=== PATIENT | male | born 1960 | race Caucasian/White ===

== ENCOUNTER 2016-08-30 18:49 | Inpatient (IN) ==
--- NOTE | 2016-08-30 19:06 | Emergency Department Note ---
Disposition Clinical Impression: Suicidal ideation Disposition: Admitted As Inpatient Condition: Good Psych HPI - General Chief Complaint: ED Psychiatric Symptoms Stated Complaint: SI Time Seen by Provider: 08/30/16 18:55 Source: patient Mode of arrival: ambulatory Limitations: no limitations Nursing Notes Reviewed: Yes Vital Signs Reviewed: Yes - History of Present Illness HPI Narrative: 56-year-old male states he has a history of bipolar disorder is feeling that he is losing control. He states he's worried that he will hurt himself. Pt complaint: suicidal ideation, feels depressed If medical clearance, reason: psychiatric condition Onset (ago): Just [employer] Duration: constant History of similar episodes: Yes Improves with: none Worsens with: none Alleged intoxication: No Associated Psychiatric Symptoms: none Associated symptoms: Reports: denies other symptoms Traumatic symptoms: denies traumatic injury Treatments prior to arrival: none - Related Data Allergies Allergy/AdvReac Type Severity Reaction Status Date / Time codeine Allergy Hives Verified 08/30/16 18:54 Penicillins Allergy Hives Verified 08/30/16 18:54 All systems ED: reviewed and negative except as stated. Constitutional: Denies: fever, chills, weakness, weight change Eyes: Denies: eye pain, eye discharge, vision change ENT ED: Denies: ear pain, throat pain, dental pain, hearing loss, epistaxis, congestion, dysphagia Cardiovascular: Denies: chest pain, palpitations, dyspnea on exertion, edema, syncope Respiratory: Denies: cough, dyspnea, wheezes, hemoptysis, stridor Gastrointestinal: Denies: abdominal pain, nausea, vomiting, diarrhea, constipation, hematemesis, melena, hematochezia Genitourinary: Denies: urgency, dysuria, frequency, hematuria Musculoskeletal: Denies: back pain, neck pain, arthralgia, myalgia Integumentary: Denies: rash, abrasion, lesions Neurological: Denies: headache, weakness, numbness, paresthesias, confusion, abnormal gait, vertigo Psychiatric: Reports: depression, suicidal thoughts. Denies: anxiety, homicidal thoughts, auditory hallucinations, visual hallucinations Endocrine: Denies: fatigue Hematological/Lymphatic: Denies: easy bleeding, easy bruising Allergic/Immunologic: Denies: facial swelling, urticaria Past Medical History - Past Medical History Medical history: Reports: COPD, diabetes, hyperlipidemia, hypertension, myocardial infarction Psychiatric history: Reports: anxiety, bipolar, depression, panic disorder, schizophrenia, previous psychiatric hospitalization, other - Social History Smoking Status: Current every day smoker Alcohol use: Reports: none Drug use: Reports: none Physical Exam - General Limitations: no limitations General appearance: alert, in no apparent distress - Head Head exam: atraumatic, normocephalic, normal inspection - Eye Eye exam: Present: normal appearance, PERRL, EOMI - ENT ENT exam: normal exam, normal oropharynx, mucous membranes moist - Neck Neck exam: Present: normal inspection, full ROM, trachea midline - Chest Chest inspection: Present: normal inspection, symmetric chest wall rise - Respiratory Respiratory exam: Present: normal lung sounds bilaterally - Cardiovascular Cardiovascular exam: Present: regular rate, normal rhythm, normal heart sounds - Abdominal Exam Abdominal exam: Present: soft, Non-Tender. Absent: tenderness, distention, guarding, rebound, rigidity - Extremities Exam Extremities exam: Present: normal inspection, full ROM. Absent: tenderness, pedal edema - Expanded Lower Extremity Exam Neurovascular/Tendon exam: Absent: motor deficit, sensory deficit, tendon deficit Gait: observed and normal - Back Exam Back exam: Present: normal inspection, full ROM. Absent: tenderness - Neurological Exam Neurological exam: Present: alert, oriented X3 - Psychiatric Psychiatric exam: Present: normal affect, normal mood - Skin Skin exam: Present: warm, dry, intact, normal color Course Vital Signs Temperature 97.9 F 08/30/16 18:50 Pulse Rate 121 08/30/16 18:50 Respiratory Rate 18 08/30/16 18:50 Blood Pressure 149/82 08/30/16 18:50 O2 Sat by Pulse Oximetry 97 08/30/16 18:50 Temperature 98.2 F 08/31/16 09:00 Pulse Rate 91 08/31/16 09:00 Respiratory Rate 22 08/31/16 09:00 Blood Pressure 134/86 08/31/16 09:00 O2 Sat by Pulse Oximetry 97 08/30/16 18:50 Oxygen Delivery Oxygen Delivery Room Air Psych - Lab Data Result diagrams: 08/30/16 19:23 08/30/16 19:23 Lab Results 08/30/16 08/30/16 08/30/16 Range/Units 19:20 19:20 19:20 WBC (4.3-11.1) K/mcL RBC (4.19-5.50) M/mcL Hgb (12.9-16.9) g/dL Hct (37.5-50.1) % MCV (83.0-100.0) fL MCH (28.0-33.3) pg MCHC (31.6-35.5) g/dL RDW (11.5-14.5) % Plt Count (140-400) K/mcL MPV (9.4-12.4) fL Immature Gran % (0-4) % Seg Neutrophils % % Lymphocytes % % Monocytes % % Eosinophils % % Basophils % % Neutrophils # (1.6-8.9) K/mcL Lymphocytes # (0.6-4.6) K/mcL Monocytes # (0.0-1.3) K/mcL Eosinophils # (0.0-0.6) K/mcL Basophils # (0.0-0.2) K/mcL Sodium (136-145) mEq/L Potassium (3.5-4.5) mEq/L Chloride (98-109) mEq/L Carbon Dioxide (19-29) mEq/L BUN (8-26) mg/dL Creatinine (0.72-1.25) mg/dL Est GFR ( Amer) (> 60) Est GFR (Non-Af Amer) (> 60) BUN/Creatinine Ratio (6-26) Glucose (70-99) mg/dL POC Glucose 210 H (58-89) Calculated Osmolality (280-300) Calcium (8.6-10.8) mg/dL Urine Color Yellow (Yellow) Urine Clarity Cloudy A (Clear) Urine pH 6.5 (5.0-8.0) pH Units Ur Specific [place] 1.022 (1.010-1.025) Urine Protein 30 H (Neg-Trace) mg/dL Urine Glucose (UA) 100 H (Normal) mg/dL Urine Ketones Negative (Negative) mg/dL Urine Blood Negative (Negative) Urine Nitrite Negative (Negative) Urine Bilirubin Small H (Negative) Urine Urobilinogen Normal (Normal) mg/dL Ur Leukocyte Esterase Small H (Negative) Urine Microscopic RBC 0-3 (0-3) per hpf Urine Microscopic WBC 5-15 H (0-3) per hpf Ur Squamous Epith Cells Many H (None-Few) per lpf Urine Bacteria Few (None-Few) per hpf Hyaline Casts Few (None-Few) per lpf Urine Mucus Moderate H (Few) Urine Yeast Test Not Performed Salicylates (15-30) mg/dL Urine Opiates Screen Negative (Lxjjjq=284) ng/mL Acetaminophen (10-30) mcg/mL Ur Barbiturates Screen Negative (Bkxzqw=502) ng/mL Ur Phencyclidine Scrn Negative (Cutoff=25) ng/mL Ur Amphetamines Screen Negative (Qdwobu=9341) ng/mL U Benzodiazepines Scrn Negative (Wtmxus=775) ng/mL Urine Cocaine Screen Negative (Cutoff= 300) ng/mL U Marijuana (THC) Screen Negative (Cutoff = 50) ng/mL Ethyl Alcohol (0-10) mg/dL 08/30/16 08/30/16 Range/Units 19:23 19:23 WBC 13.1 H (4.3-11.1) K/mcL RBC 5.00 (4.19-5.50) M/mcL Hgb 14.5 (12.9-16.9) g/dL Hct 41.4 (37.5-50.1) % MCV 82.8 L (83.0-100.0) fL MCH 29.0 (28.0-33.3) pg MCHC 35.0 (31.6-35.5) g/dL RDW 12.4 (11.5-14.5) % Plt Count 312 (140-400) K/mcL MPV 8.9 L (9.4-12.4) fL Immature Gran % 0.5 (0-4) % Seg Neutrophils % 64.0 % Lymphocytes % 19.9 % Monocytes % 10.1 % Eosinophils % 4.7 % Basophils % 0.8 % Neutrophils # 8.4 (1.6-8.9) K/mcL Lymphocytes # 2.6 (0.6-4.6) K/mcL Monocytes # 1.3 (0.0-1.3) K/mcL Eosinophils # 0.6 (0.0-0.6) K/mcL Basophils # 0.1 (0.0-0.2) K/mcL Sodium 136 (136-145) mEq/L Potassium 4.3 (3.5-4.5) mEq/L Chloride 104 (98-109) mEq/L Carbon Dioxide 23 (19-29) mEq/L BUN 15 (8-26) mg/dL Creatinine 0.84 (0.72-1.25) mg/dL Est GFR ( Amer) > 60 (> 60) Est GFR (Non-Af Amer) > 60 (> 60) BUN/Creatinine Ratio 18 (6-26) Glucose 201 H (70-99) mg/dL POC Glucose (58-89) Calculated Osmolality 289 (280-300) Calcium 10.1 (8.6-10.8) mg/dL Urine Color (Yellow) Urine Clarity (Clear) Urine pH (5.0-8.0) pH Units Ur Specific [place] (1.010-1.025) Urine Protein (Neg-Trace) mg/dL Urine Glucose (UA) (Normal) mg/dL Urine Ketones (Negative) mg/dL Urine Blood (Negative) Urine Nitrite (Negative) Urine Bilirubin (Negative) Urine Urobilinogen (Normal) mg/dL Ur Leukocyte Esterase (Negative) Urine Microscopic RBC (0-3) per hpf Urine Microscopic WBC (0-3) per hpf Ur Squamous Epith Cells (None-Few) per lpf Urine Bacteria (None-Few) per hpf Hyaline Casts (None-Few) per lpf Urine Mucus (Few) Urine Yeast Salicylates < 5.0 L (15-30) mg/dL Urine Opiates Screen (Ivvnot=151) ng/mL Acetaminophen < 1.0 L (10-30) mcg/mL Ur Barbiturates Screen (Ebhyna=567) ng/mL Ur Phencyclidine Scrn (Cutoff=25) ng/mL Ur Amphetamines Screen (Cgsaiv=9865) ng/mL U Benzodiazepines Scrn (Dhnlem=150) ng/mL Urine Cocaine Screen (Cutoff= 300) ng/mL U Marijuana (THC) Screen (Cutoff = 50) ng/mL Ethyl Alcohol < 10 (0-10) mg/dL Psychiatric Medical Clearance - Medical Clearance Checklist Medical History: No Social History Section defined Current Vitals: Last Vital Signs Temp 98.2 F 08/31/16 09:00 Pulse 91 08/31/16 09:00 Resp 22 08/31/16 09:00 BP 134/86 08/31/16 09:00 Pulse Ox 97 08/30/16 18:50 Psychiatric Lab Panel: Drug Levels and Toxicity 08/30/16 08/30/16 19:20 19:23 Urine Opiates Screen Negative Acetaminophen < 1.0 L Ur Barbiturates Screen Negative Ur Phencyclidine Scrn Negative Ur Amphetamines Screen Negative U Benzodiazepines Scrn Negative Urine Cocaine Screen Negative U Marijuana (THC) Screen Negative Ethyl Alcohol < 10 Abnormal Labs: Abnormal lab results WBC 13.1 K/mcL (4.3-11.1) H 08/30/16 19:23 MCV 82.8 fL (83.0-100.0) L 08/30/16 19:23 MPV 8.9 fL (9.4-12.4) L 08/30/16 19:23 Glucose 201 mg/dL (70-99) H 08/30/16 19:23 POC Glucose 170 (58-89) H 08/31/16 07:38 Urine Clarity Cloudy (Clear) A 08/30/16 19:20 Urine Protein 30 mg/dL (Neg-Trace) H 08/30/16 19:20 Urine Glucose (UA) 100 mg/dL (Normal) H 08/30/16 19:20 Urine Bilirubin Small (Negative) H 08/30/16 19:20 Ur Leukocyte Esterase Small (Negative) H 08/30/16 19:20 Urine Microscopic WBC 5-15 per hpf (0-3) H 08/30/16 19:20 Ur Squamous Epith Cells Many per lpf (None-Few) H 08/30/16 19:20 Urine Mucus Moderate (Few) H 08/30/16 19:20 Salicylates < 5.0 mg/dL (15-30) L 08/30/16 19:23 Acetaminophen < 1.0 mcg/mL (10-30) L 08/30/16 19:23 Statement of Medical Clearance: I have evaluated the patient, reviewed diagnostic information, and certify that the patient's medical condition is sufficiently stable that transfer to the psychiatric unit does not pose a significant risk of deterioration. S.B.Faisal - Héctor Situation: Demographics Background: Presenting Complaint (Depression and bipolar disorder) Assessment: Vital Signs Recommendation: Recommendation based on pending studies, treatments, or consults S.B.ADebo Report Given to: Dr. Dyana Anaya Repor Time: 23:00
[2016-08-30 19:28] LABS: Basophils # 0.1 K/mcL (0.0-0.2); Basophils % 0.8 %; Eosinophils # 0.6 K/mcL (0.0-0.6); Eosinophils % 4.7 %; Hematocrit 41.4 % (37.5-50.1); Hemoglobin 14.5 g/dL (12.9-16.9); Immature Granulocytes % 0.5 % (0-4); Lymphocytes # 2.6 K/mcL (0.6-4.6); Lymphocytes % 19.9 %; Mean Corpuscular Volume 82.8 fL (83.0-100.0); Mean Platelet Volume 8.9 fL (9.4-12.4); Monocytes # 1.3 K/mcL (0.0-1.3); Monocytes % 10.1 %; Neutrophils # 8.4 K/mcL (1.6-8.9); Platelet Count 312 K/mcL (140-400); Red Cell Distribution Width 12.4 % (11.5-14.5)
[2016-08-30 19:30] LABS: Bilirubin,Urine Small (Negative); Blood,Urine Negative (Negative); Clarity,Urine Cloudy (Clear); Color,Urine Yellow (Yellow); Glucose,Urine (UA) 100 mg/dL (Normal); Ketones,Urine Negative (Negative); Leukocyte Esterase,Urine Small (Negative); Nitrite,Urine Negative (Negative); PH,Urine 6.5 pH Units (5.0-8.0); Protein,Urine 30 mg/dL (Neg-Trace); Specific Gravity,Urine 1.022 (1.010-1.025); Urobilinogen,Urine Normal (Normal)
[2016-08-30 19:36] LABS: Hyaline Casts,Urine Few per lpf (None-Few); RBC,Urine 0-3 per hpf (0-3); Squamous Epithelial Cell,Urine Many per lpf (None-Few)
[2016-08-30 19:38] LABS: Amphetamine Screen,Urine Negative ng/mL (Cutoff=1000); Barbiturate Screen,Urine Negative ng/mL (Cutoff=200); Benzodiazepines Screen,Urine Negative ng/mL (Cutoff=200); Cannabinoid Screen,Urine Negative ng/mL (Cutoff = 50); Cocaine Screen,Urine Negative ng/mL (Cutoff= 300); Opiate Screen,Urine Negative ng/mL (Cutoff=300); Phencyclidine Screen,Urine Negative ng/mL (Cutoff=25)
[2016-08-30 19:42] LABS: Acetaminophen < 1.0 mcg/mL (10-30); BUN/Creatinine Ratio 18 (6-26); Blood Urea Nitrogen 15 mg/dL (8-26); Calcium 10.1 mg/dL (8.6-10.8); Carbon Dioxide 23 mEq/L (19-29); Chloride 104 mEq/L (98-109); Ethanol < 10 mg/dL (0-10); Glucose 201 mg/dL (70-99); Osmolality,Calculated 289 (280-300); Potassium 4.3 mEq/L (3.5-4.5); Salicylate < 5.0 mg/dL (15-30); Sodium 136 mEq/L (136-145); eGFR For African Americans > 60 (> 60); eGFR For Non-African Americans > 60 (> 60)
[2016-08-30 19:47] LABS: Bacteria,Urine Few per hpf (None-Few); Mucus,Urine Moderate (Few)
--- NOTE | 2016-08-30 22:20 | Emergency Department Note ---
Disposition Clinical Impression: Suicidal ideation Disposition: Admitted As Inpatient Condition: Good Referrals: NO,PCP [Primary Care Provider] - Forms: ED Satisfaction Letter Time of Disposition: 23:35 General Adult HPI - General Chief complaint: ED Psychiatric Symptoms Stated complaint: SI Time Seen by Provider: 08/30/16 18:55 Source: patient Mode of arrival: ambulatory Limitations: no limitations - History of Present Illness Pain Scale: 2 - Related Data Allergies Allergy/AdvReac Type Severity Reaction Status Date / Time codeine Allergy Hives Verified 08/30/16 18:54 Penicillins Allergy Hives Verified 08/30/16 18:54 Constitutional: Denies: fever, chills, weakness, weight change Eyes: Denies: eye pain, eye discharge, vision change ENT ED: Denies: ear pain, throat pain, dental pain, hearing loss, epistaxis, congestion, dysphagia Cardiovascular: Denies: chest pain, palpitations, dyspnea on exertion, edema, syncope Respiratory: Denies: cough, dyspnea, wheezes, hemoptysis, stridor Gastrointestinal: Denies: abdominal pain, nausea, vomiting, diarrhea, constipation, hematemesis, melena, hematochezia Genitourinary: Denies: urgency, dysuria, frequency, hematuria Musculoskeletal: Denies: back pain, neck pain, arthralgia, myalgia Integumentary: Denies: rash, abrasion, lesions Neurological: Denies: headache, weakness, numbness, paresthesias, confusion, abnormal gait, vertigo Psychiatric: Reports: depression, suicidal thoughts. Denies: anxiety, homicidal thoughts, auditory hallucinations, visual hallucinations Endocrine: Denies: fatigue Hematological/Lymphatic: Denies: easy bleeding, easy bruising Allergic/Immunologic: Denies: facial swelling, urticaria Past Medical History - Past Medical History Medical history: Reports: COPD, diabetes, hyperlipidemia, hypertension, myocardial infarction Psychiatric history: Reports: anxiety, bipolar, depression, panic disorder, schizophrenia, previous psychiatric hospitalization, other - Social History Smoking Status: Current every day smoker Alcohol use: Reports: none Drug use: Reports: none Physical Exam - General Limitations: no limitations General appearance: alert, in no apparent distress Course - Reevaluation(s) Reevaluation #1: 56-year-old male history of bipolar disorder presents with suicidal ideations. No discrete plan. Medically cleared. Received the patient in sign out from the departing attending Dr. Villalpando. Please see copy of his note for details of the previous ED workup encounter. Mental health to evaluate the patient and arrange disposition. Disposition pending. Patient stable Time: 23:00 Reevaluation #2: Mental health had evaluated the patient. Discussed the case with the psychiatric attending Dr. Porter. Patient accepted for admission. Admission orders placed. REQUESTED to complete and signed a pink slip which has been accomplished. Patient admitted in stable condition. Time: 23:35 Vital Signs Temperature 97.9 F 08/30/16 18:50 Pulse Rate 121 08/30/16 18:50 Respiratory Rate 18 08/30/16 18:50 Blood Pressure 149/82 08/30/16 18:50 O2 Sat by Pulse Oximetry 97 08/30/16 18:50 Temperature 97.9 F 08/30/16 18:50 Pulse Rate 121 08/30/16 18:50 Respiratory Rate 18 08/30/16 18:50 Blood Pressure 149/82 08/30/16 18:50 O2 Sat by Pulse Oximetry 97 08/30/16 18:50 Oxygen Delivery Oxygen Delivery Room Air Medical Decision Making - Lab Data Result diagrams: 08/30/16 19:23 08/30/16 19:23 Lab Results 08/30/16 08/30/16 08/30/16 Range/Units 19:20 19:20 19:23 WBC 13.1 H (4.3-11.1) K/mcL RBC 5.00 (4.19-5.50) M/mcL Hgb 14.5 (12.9-16.9) g/dL Hct 41.4 (37.5-50.1) % MCV 82.8 L (83.0-100.0) fL MCH 29.0 (28.0-33.3) pg MCHC 35.0 (31.6-35.5) g/dL RDW 12.4 (11.5-14.5) % Plt Count 312 (140-400) K/mcL MPV 8.9 L (9.4-12.4) fL Immature Gran % 0.5 (0-4) % Seg Neutrophils % 64.0 % Lymphocytes % 19.9 % Monocytes % 10.1 % Eosinophils % 4.7 % Basophils % 0.8 % Neutrophils # 8.4 (1.6-8.9) K/mcL Lymphocytes # 2.6 (0.6-4.6) K/mcL Monocytes # 1.3 (0.0-1.3) K/mcL Eosinophils # 0.6 (0.0-0.6) K/mcL Basophils # 0.1 (0.0-0.2) K/mcL Sodium (136-145) mEq/L Potassium (3.5-4.5) mEq/L Chloride (98-109) mEq/L Carbon Dioxide (19-29) mEq/L BUN (8-26) mg/dL Creatinine (0.72-1.25) mg/dL Est GFR ( Amer) (> 60) Est GFR (Non-Af Amer) (> 60) BUN/Creatinine Ratio (6-26) Glucose (70-99) mg/dL Calculated Osmolality (280-300) Calcium (8.6-10.8) mg/dL Urine Color Yellow (Yellow) Urine Clarity Cloudy A (Clear) Urine pH 6.5 (5.0-8.0) pH Units Ur Specific [place] 1.022 (1.010-1.025) Urine Protein 30 H (Neg-Trace) mg/dL Urine Glucose (UA) 100 H (Normal) mg/dL Urine Ketones Negative (Negative) mg/dL Urine Blood Negative (Negative) Urine Nitrite Negative (Negative) Urine Bilirubin Small H (Negative) Urine Urobilinogen Normal (Normal) mg/dL Ur Leukocyte Esterase Small H (Negative) Urine Microscopic RBC 0-3 (0-3) per hpf Urine Microscopic WBC 5-15 H (0-3) per hpf Ur Squamous Epith Cells Many H (None-Few) per lpf Urine Bacteria Few (None-Few) per hpf Hyaline Casts Few (None-Few) per lpf Urine Mucus Moderate H (Few) Urine Yeast Test Not Performed Salicylates (15-30) mg/dL Urine Opiates Screen Negative (Cbxjgr=760) ng/mL Acetaminophen (10-30) mcg/mL Ur Barbiturates Screen Negative (Qcvmoh=351) ng/mL Ur Phencyclidine Scrn Negative (Cutoff=25) ng/mL Ur Amphetamines Screen Negative (Jrgtvi=3756) ng/mL U Benzodiazepines Scrn Negative (Cwlkht=063) ng/mL Urine Cocaine Screen Negative (Cutoff= 300) ng/mL U Marijuana (THC) Screen Negative (Cutoff = 50) ng/mL Ethyl Alcohol (0-10) mg/dL 08/30/16 Range/Units 19:23 WBC (4.3-11.1) K/mcL RBC (4.19-5.50) M/mcL Hgb (12.9-16.9) g/dL Hct (37.5-50.1) % MCV (83.0-100.0) fL MCH (28.0-33.3) pg MCHC (31.6-35.5) g/dL RDW (11.5-14.5) % Plt Count (140-400) K/mcL MPV (9.4-12.4) fL Immature Gran % (0-4) % Seg Neutrophils % % Lymphocytes % % Monocytes % % Eosinophils % % Basophils % % Neutrophils # (1.6-8.9) K/mcL Lymphocytes # (0.6-4.6) K/mcL Monocytes # (0.0-1.3) K/mcL Eosinophils # (0.0-0.6) K/mcL Basophils # (0.0-0.2) K/mcL Sodium 136 (136-145) mEq/L Potassium 4.3 (3.5-4.5) mEq/L Chloride 104 (98-109) mEq/L Carbon Dioxide 23 (19-29) mEq/L BUN 15 (8-26) mg/dL Creatinine 0.84 (0.72-1.25) mg/dL Est GFR ( Amer) > 60 (> 60) Est GFR (Non-Af Amer) > 60 (> 60) BUN/Creatinine Ratio 18 (6-26) Glucose 201 H (70-99) mg/dL Calculated Osmolality 289 (280-300) Calcium 10.1 (8.6-10.8) mg/dL Urine Color (Yellow) Urine Clarity (Clear) Urine pH (5.0-8.0) pH Units Ur Specific [place] (1.010-1.025) Urine Protein (Neg-Trace) mg/dL Urine Glucose (UA) (Normal) mg/dL Urine Ketones (Negative) mg/dL Urine Blood (Negative) Urine Nitrite (Negative) Urine Bilirubin (Negative) Urine Urobilinogen (Normal) mg/dL Ur Leukocyte Esterase (Negative) Urine Microscopic RBC (0-3) per hpf Urine Microscopic WBC (0-3) per hpf Ur Squamous Epith Cells (None-Few) per lpf Urine Bacteria (None-Few) per hpf Hyaline Casts (None-Few) per lpf Urine Mucus (Few) Urine Yeast Salicylates < 5.0 L (15-30) mg/dL Urine Opiates Screen (Shviyr=836) ng/mL Acetaminophen < 1.0 L (10-30) mcg/mL Ur Barbiturates Screen (Shqhcp=423) ng/mL Ur Phencyclidine Scrn (Cutoff=25) ng/mL Ur Amphetamines Screen (Xurdca=0314) ng/mL U Benzodiazepines Scrn (Uovpnv=058) ng/mL Urine Cocaine Screen (Cutoff= 300) ng/mL U Marijuana (THC) Screen (Cutoff = 50) ng/mL Ethyl Alcohol < 10 (0-10) mg/dL
[2016-08-30] MEDS ORDERED: traZODone 50 MG TABLET PO PRN (23:37)
[2016-08-30] MEDS ORDERED: hydrOXYzine pamoate 25 MG CAPSULE PO PRN (23:37)
[2016-08-30] MEDS ORDERED: MOM Conc 10 ML UD.LIQ PO PRN (23:37)
[2016-08-30] MEDS ORDERED: *HR* LORazepam 1 MG TABLET PO PRN (23:37)
[2016-08-30] MEDS ORDERED: Mag Hydrox/Al Hydrox/Simeth 30 ML UDC PO PRN (23:37)
[2016-08-30] MEDS ORDERED: Acetaminophen 325 MG TABLET PO PRN (23:37)
[2016-08-30] MEDS ORDERED: Haloperidol Lactate 5 MG/ML VIAL IM PRN (23:37)
[2016-08-30] MEDS ORDERED: *HR* LORazepam 2 MG/ML VIAL IM PRN (23:37)
[2016-08-31] MEDS: Nicotine 21 MG PATCH.TD24 TD SCH (10:20)
--- NOTE | 2016-08-31 12:41 | Psychiatry History & Physical ---
Date of Encounter: 08/31/16 Time of Encounter: 12:15 History of Present Illness Patient Stated Chief Complaint: "I feel depressed." Medicare Admission Attestation: For traditional Medicare patients the provided hospital inpatient services are reasonable and necessary and in the case of services not specified as inpatient -only under 42 CFR 419.22 (n), that they are appropriately provided as inpatient services in accordance 42 CFR 412.3. For Critical Access Hospital the patient may reasonably be expected to be discharged or transferred to a hospital within 96 hours after admission to the Critical Access Hospital. Admitted From: Emergency Dept Plans for Post Hospital Care: Home History of Present Illness: Mr. Coy is a 56 year old male with a long-standing history of depression and anxiety as well as a remote history of alcohol and drug abuse. He presented to the hospital with increasing suicidal ideation and depressed mood area and patient states his mood has been getting progressively worse over the past few months. He states [place] but he does not feel that he connects with his neighbors. "I go off all my own."patient states that in the past he has done well with lithium but other providers have been hesitant to prescribe it. He does have long-standing history of hypothyroidism and diabetes as well as multiple other medical issues. Patient reports he is going to try anything as long as it is helpful for him. He has been taking Risperdal and Zoloft in low doses as well as trazodone for sleep. Patient does report he has difficulty both falling asleep and staying asleep. "Sometimes my mind just races." He reports continued suicidal ideation without plan today. "I just have any hope for the future right now." He denies grandiosity, decreased need for sleep, impulsivity. He denies obsessions, delusions, paranoia. Patient voiced a concern that he would like to stay away from habit-forming substances because he has been sober for 20 years. He feels like he has no social support outside of the hospital. Past Med Surg Social Fam HX - Past Medical History Medical history: COPD, diabetes, hyperlipidemia, hypertension, myocardial infarction - Past Psychiatric History Psychiatric history: Reports: depression, prior suicide attempt, previous psychiatric hospitalization Past psychiatric history details: Patient reports multiple psychiatric admissions in the past. Last admission was multiple years ago. He has overdosed several times in the past. Patient states that he goes home he may try to overdose again. Family psychiatric history: No Family History of Suicide: None - Past Surgical History Surgical History: orthopedic, other - Social History Smoking Status: Current every day smoker Smokeless Tobacco Status: No Alcohol use: none Drug use: none Current living situation: Home - Independent - Family History Mother Family Member Ethnicity: Non- Living Status: Age at : 82 Cause of : "Heart disease" Hx Family Cardiac Disorders: Yes Medications & Allergies Albuterol Sulfate [Ventolin Hfa] 2 puff IH Q4-6H PRN 08/31/16 [History] Aspirin Enteric Coated [Aspirin EC] 81 mg PO DAILY 08/31/16 [History] Atorvastatin [Lipitor] 10 mg PO HS 08/31/16 [History] Levothyroxine [Synthroid] 50 mcg PO 0630 08/31/16 [History] Metformin HCl [Glucophage] 1,000 mg PO BIDWM 08/31/16 [History] Sertraline [Zoloft] 25 mg PO DAILY 08/31/16 [History] risperiDONE [Risperdal] 0.25 mg PO BID 08/31/16 [History] traZODone [TraZODone] 50 mg PO HS 08/31/16 [History] Allergies codeine Allergy (Verified 08/30/16 18:54) Hives Penicillins Allergy (Verified 08/30/16 18:54) Hives Review of Systems Constitutional: Denies: fever, chills, weakness, weight change Eyes: Denies: eye pain, vision change Ears, Nose, Throat: Denies: ear pain, throat pain, dental pain, hearing loss, congestion Cardiovascular: Denies: chest pain, palpitations, dyspnea on exertion Respiratory: Denies: cough, dyspnea, wheezes Gastrointestinal: Denies: abdominal pain, nausea, vomiting, diarrhea, constipation Genitourinary male: Denies: urgency, dysuria, frequency, genital lesions Genitourinary female: Denies: urgency, dysuria, frequency, abnormal menses, dyspareunia Musculoskeletal: Reports: joint pain Integumentary: Denies: rash, lesions, pruritus Neurological: Reports: paresthesias Psychiatric: Reports: depression, suicidal ideation, anhedonia, hopelessness Endocrine: Denies: fatigue, heat or cold intolerance Hematologic/Lymphatic: Denies: easy bruising, lymphadenopathy Allergic/Immunologic: Denies: urticaria, itchy eyes Mental Status Exam Patient orientation: Yes Person, Yes Time, Yes Place Level of alertness: Alert Patient appearance: Disheveled Behavior: calm, cooperative Psychomotor activity: Normal Eye contact: Fleeting Contact Mood description: Depressed, Anxious Affect description: congruent with mood, dysphoric Speech pattern: Normal rate, Normal rhythm, Normal tone Speech volume: Normal Thought process: Intact Thought content: Yes Suicidal ideation, No Homicidal ideation Perceptual disturbances: No Auditory hallucinations, No Visual hallucinations Attention span: Capable of Focused Attention Memory description: Grossly Intact Patient reliability: Reliable Historian Intelligence estimate: Average Judgment: Limited Insight: Minimal Exam - HEENT Head exam IM: Present: atraumatic Eye exam IM: Present: EOMI - Neurological Neurological exam IM: Present: CN II-XII intact - Skin Skin exam IM: Present: dry, intact Results - Vital Signs Vital signs: Temp Pulse Resp BP Pulse Ox 98.2 F 91 22 134/86 97 08/31/16 09:00 08/31/16 09:00 08/31/16 09:00 08/31/16 09:00 08/30/16 18:50 - Labs Labs: Laboratory Last Values WBC 13.1 K/mcL (4.3-11.1) H 08/30/16 19:23 RBC 5.00 M/mcL (4.19-5.50) 08/30/16 19:23 Hgb 14.5 g/dL (12.9-16.9) 08/30/16 19:23 Hct 41.4 % (37.5-50.1) 08/30/16 19:23 MCV 82.8 fL (83.0-100.0) L 08/30/16 19:23 MCH 29.0 pg (28.0-33.3) 08/30/16 19:23 MCHC 35.0 g/dL (31.6-35.5) 08/30/16 19:23 RDW 12.4 % (11.5-14.5) 08/30/16 19:23 Plt Count 312 K/mcL (140-400) 08/30/16 19:23 MPV 8.9 fL (9.4-12.4) L 08/30/16 19:23 Immature Gran % 0.5 % (0-4) 08/30/16 19:23 Seg Neutrophils % 64.0 % 08/30/16 19:23 Lymphocytes % 19.9 % 08/30/16 19:23 Monocytes % 10.1 % 08/30/16 19:23 Eosinophils % 4.7 % 08/30/16 19:23 Basophils % 0.8 % 08/30/16 19:23 Neutrophils # 8.4 K/mcL (1.6-8.9) 08/30/16 19:23 Lymphocytes # 2.6 K/mcL (0.6-4.6) 08/30/16 19:23 Monocytes # 1.3 K/mcL (0.0-1.3) 08/30/16 19:23 Eosinophils # 0.6 K/mcL (0.0-0.6) 08/30/16 19:23 Basophils # 0.1 K/mcL (0.0-0.2) 08/30/16 19:23 Sodium 136 mEq/L (136-145) 08/30/16 19:23 Potassium 4.3 mEq/L (3.5-4.5) 08/30/16 19:23 Chloride 104 mEq/L (98-109) 08/30/16 19:23 Carbon Dioxide 23 mEq/L (19-29) 08/30/16 19:23 BUN 15 mg/dL (8-26) 08/30/16 19:23 Creatinine 0.84 mg/dL (0.72-1.25) 08/30/16 19:23 Est GFR ( Amer) > 60 (> 60) 08/30/16 19:23 Est GFR (Non-Af Amer) > 60 (> 60) 08/30/16 19:23 BUN/Creatinine Ratio 18 (6-26) 08/30/16 19:23 Glucose 201 mg/dL (70-99) H 08/30/16 19:23 POC Glucose 170 (58-89) H 08/31/16 07:38 Calculated Osmolality 289 (280-300) 08/30/16 19:23 Calcium 10.1 mg/dL (8.6-10.8) 08/30/16 19:23 Urine Color Yellow (Yellow) 08/30/16 19:20 Urine Clarity Cloudy (Clear) A 08/30/16 19:20 Urine pH 6.5 pH Units (5.0-8.0) 08/30/16 19:20 Ur Specific [place] 1.022 (1.010-1.025) 08/30/16 19:20 Urine Protein 30 mg/dL (Neg-Trace) H 08/30/16 19:20 Urine Glucose (UA) 100 mg/dL (Normal) H 08/30/16 19:20 Urine Ketones Negative mg/dL (Negative) 08/30/16 19:20 Urine Blood Negative (Negative) 08/30/16 19:20 Urine Nitrite Negative (Negative) 08/30/16 19:20 Urine Bilirubin Small (Negative) H 08/30/16 19:20 Urine Urobilinogen Normal mg/dL (Normal) 08/30/16 19:20 Ur Leukocyte Esterase Small (Negative) H 08/30/16 19:20 Urine Microscopic RBC 0-3 per hpf (0-3) 08/30/16 19:20 Urine Microscopic WBC 5-15 per hpf (0-3) H 08/30/16 19:20 Ur Squamous Epith Cells Many per lpf (None-Few) H 08/30/16 19:20 Urine Bacteria Few per hpf (None-Few) 08/30/16 19:20 Hyaline Casts Few per lpf (None-Few) 08/30/16 19:20 Urine Mucus Moderate (Few) H 08/30/16 19:20 Urine Yeast Test Not Performed 08/30/16 19:20 Salicylates < 5.0 mg/dL (15-30) L 08/30/16 19:23 Urine Opiates Screen Negative ng/mL (Vjlltu=460) 08/30/16 19:20 Acetaminophen < 1.0 mcg/mL (10-30) L 08/30/16 19:23 Ur Barbiturates Screen Negative ng/mL (Sgnpgs=966) 08/30/16 19:20 Ur Phencyclidine Scrn Negative ng/mL (Cutoff=25) 08/30/16 19:20 Ur Amphetamines Screen Negative ng/mL (Vuqnqr=5480) 08/30/16 19:20 U Benzodiazepines Scrn Negative ng/mL (Ndmlvw=866) 08/30/16 19:20 Urine Cocaine Screen Negative ng/mL (Cutoff= 300) 08/30/16 19:20 U Marijuana (THC) Screen Negative ng/mL (Cutoff = 50) 08/30/16 19:20 Ethyl Alcohol < 10 mg/dL (0-10) 08/30/16 19:23 Assessment and Plan (1) Major depressive disorder, recurrent severe without psychotic features Current visit: Yes Status: Acute Plan: Admit inpatient for safety and stabilization, Close observation, Suicide Precautions per unit protocol, Encourage participation in unit milieu, Group Therapy, Monitor sleep, Monitor appetite Additional Plan: Admitted to 1 a for psychiatric stabilization. Encourage group attendance. We will increase Zoloft and Risperdal for mood stabilization. Patient denies side effects of these meds but states they are no longer helping at current dosages. Increase trazodone for sleep. Monitor for side effects. Risks, benefits, side effects, alternatives discussed w/pt: Yes Patient agreeable to treatment: Yes Plans for Post Hospital Care: Home Estimated Length of Stay (Days): 3 (2) Anxiety Current visit: Yes Status: Acute Plan: Admit inpatient for safety and stabilization, Close observation, Suicide Precautions per unit protocol, Encourage participation in unit milieu, Group Therapy, Monitor sleep, Monitor appetite Additional Plan: Encourage positive coping strategies. Consider BuSpar or hydroxyzine for anxiety if needed. Risks, benefits, side effects, alternatives discussed w/pt: Yes Patient agreeable to treatment: Yes
[2016-08-31] MEDS: *HR* Metformin 500 MG TABLET PO SCH (16:31)
[2016-08-31] MEDS: risperiDONE 0.25 MG TABLET PO SCH (20:12)
[2016-08-31] MEDS: traZODone 50 MG TABLET PO PRN (20:14)
[2016-08-31] MEDS ORDERED: traZODone 50 MG TABLET PO SCH (21:00)
[2016-08-31] MEDS ORDERED: risperiDONE 0.25 MG TABLET PO SCH (21:00)
[2016-09-01] MEDS: Nicotine 21 MG PATCH.TD24 TD SCH (09:05)
[2016-09-01] MEDS: Aspirin Enteric Coated 81 MG Tablet PO SCH (09:06)
[2016-09-01] MEDS: risperiDONE 0.25 MG TABLET PO SCH ×2 (09:06→21:07)
[2016-09-01] MEDS: *HR* Metformin 500 MG TABLET PO SCH ×2 (09:06→17:11)
--- NOTE | 2016-09-01 10:35 | Psychiatry Progress Note ---
Date of Encounter: 09/01/16 Time of Encounter: 09:20 Subjective Interval history: Gene is seen today for follow-up. He reports continued depression and vague suicidal ideations without plan. Patient denies issues with meds except that he feels slightly more fatigued since the increase of Zoloft and Risperdal. Patient is prepared to get used to the adjustment and states that when he initially started the Risperdal had some fatigue but that this decreased over time. He reports that he is very lonely at home and has trouble connecting with others socially. This is a big concern for him on discharge. I encouraged patient to attend groups. Review of Systems Constitutional: Denies: fever, chills, weakness, weight change Eyes: Denies: eye pain, vision change Ears, Nose, Throat: Denies: ear pain, throat pain, dental pain, hearing loss, congestion Cardiovascular: Denies: chest pain, palpitations, dyspnea on exertion Respiratory: Denies: cough, dyspnea, wheezes Gastrointestinal: Denies: abdominal pain, nausea, vomiting, diarrhea, constipation Musculoskeletal: Reports: back pain, joint pain Neurological: Denies: headache, weakness, numbness, memory loss Psychiatric: Reports: depression, suicidal ideation, anhedonia, difficulty concentrating, hopelessness Objective: Exam Patient orientation: Yes Person, Yes Time, Yes Place Level of alertness: Alert Patient appearance: Unkempt Behavior: calm, cooperative Psychomotor activity: Normal Eye contact: Minimal Contact Mood description: Depressed Affect description: congruent with mood, dysphoric Speech pattern: Normal rate, Normal rhythm, Normal tone Speech volume: Normal Thought process: Intact, Aubrey Thought content: Yes Suicidal ideation Perceptual disturbances: No Auditory hallucinations, No Visual hallucinations Judgment: Limited Insight: Minimal Results - Vital Signs Vital Signs: Temp Pulse Resp BP Pulse Ox 97.6 F 114 16 90/61 97 09/01/16 08:16 09/01/16 08:16 09/01/16 08:16 09/01/16 08:16 08/30/16 18:50 - Labs Labs: Laboratory Results - last 24 hr 08/31/16 08/31/16 09/01/16 16:27 21:08 09:04 POC Glucose 193 H 178 H 308 H Assessment and Plan (1) Major depressive disorder, recurrent severe without psychotic features Current visit: Yes Status: Acute Plan: Continue hospitalization, Close observation, Suicide Precautions per unit protocol, Encourage participation in unit milieu, Group Therapy, Monitor sleep, Monitor appetite Additional Plan: We will monitor patient and make no further medication changes today as patient is having some sedation. We will consider cutting the daytime dose of Risperdal back to lower dosage and given increased dose at bedtime if patient continues to have fatigue. He is willing to attend groups. We will work on appropriate DC planning for when patient is stable. Risks, benefits, side effects, alternatives discussed w/pt: Yes Patient agreeable to treatment: Yes (2) Anxiety Current visit: Yes Status: Acute Plan: Continue hospitalization, Close observation, Suicide Precautions per unit protocol, Encourage participation in unit milieu, Group Therapy, Monitor sleep, Monitor appetite Additional Plan: Encourage positive coping strategies. Risks, benefits, side effects, alternatives discussed w/pt: Yes Patient agreeable to treatment: Yes Consult Discharge Plan - Plan Referrals: NO,PCP [Primary Care Provider] -
[2016-09-01] MEDS: traZODone 50 MG TABLET PO PRN (21:07)
[2016-09-02] MEDS: risperiDONE 0.25 MG TABLET PO SCH ×2 (08:05→20:55)
[2016-09-02] MEDS: *HR* Metformin 500 MG TABLET PO SCH ×2 (08:05→17:41)
[2016-09-02] MEDS: Nicotine 21 MG PATCH.TD24 TD SCH (08:05)
[2016-09-02] MEDS: Aspirin Enteric Coated 81 MG Tablet PO SCH (08:06)
--- NOTE | 2016-09-02 10:38 | Psychiatry Progress Note ---
Date of Encounter: 09/02/16 Time of Encounter: 10:15 Subjective Interval history: Gene is seen today for follow-up. He reports he is tolerating his medication changes better today and states his fatigue is improving. He has been able to get up and shower and is sitting on the day room. He denies suicidal ideations. He states he is more hopeful about his future despite his chronic pain issues. He knows the medications will take time to fully work but he is hopeful that the med changes will continue to improve his mood. He reports he is sleeping well he has had a few nightmares but he states that this happens from time to time and does not want to make medications adjustments. We did discuss that the trazodone can cause nightmares and patient verbalized understanding of this. Review of Systems Constitutional: Denies: fever, chills, weakness, weight change Eyes: Denies: eye pain, vision change Ears, Nose, Throat: Denies: ear pain, throat pain, dental pain, hearing loss, congestion Cardiovascular: Denies: chest pain, palpitations, dyspnea on exertion Respiratory: Denies: cough, dyspnea, wheezes Gastrointestinal: Denies: abdominal pain, nausea, vomiting, diarrhea, constipation Musculoskeletal: Reports: back pain, joint pain Neurological: Denies: headache, weakness, numbness, memory loss Psychiatric: Reports: depression, anxiety, abnormal sleep pattern Objective: Exam Patient orientation: Yes Person, Yes Time, Yes Place Level of alertness: Alert Patient appearance: Appropriate, Well Groomed Behavior: calm, cooperative Psychomotor activity: Normal Eye contact: Maintains Eye Contact Mood description: Depressed, Anxious Patient description of mood: "I am better today, but I know this takes time." Affect description: congruent with mood Speech pattern: Normal rate, Normal rhythm, Normal tone Speech volume: Normal Thought process: Intact, Goal Oriented Thought content: Yes Intact, No Suicidal ideation, No Homicidal ideation Perceptual disturbances: No Auditory hallucinations, No Visual hallucinations Judgment: Fair Insight: Partial Results - Vital Signs Vital Signs: Temp Pulse Resp BP Pulse Ox 98.2 F 103 16 126/83 97 09/02/16 08:41 09/02/16 08:41 09/02/16 08:41 09/02/16 08:41 08/30/16 18:50 - Labs Labs: Laboratory Results - last 24 hr 09/01/16 09/02/16 16:38 07:49 POC Glucose 146 H 158 H Assessment and Plan (1) Major depressive disorder, recurrent severe without psychotic features Current visit: Yes Status: Acute Plan: Continue hospitalization, Close observation, Suicide Precautions per unit protocol, Encourage participation in unit milieu, Group Therapy, Monitor sleep, Monitor appetite Additional Plan: Continue current medications. Patient reports some improvement in his mood and denies SI today. DC tomorrow if patient continues to improve. Risks, benefits, side effects, alternatives discussed w/pt: Yes Patient agreeable to treatment: Yes (2) Anxiety Current visit: Yes Status: Acute Plan: Continue hospitalization, Close observation, Suicide Precautions per unit protocol, Encourage participation in unit milieu, Group Therapy, Monitor sleep, Monitor appetite Additional Plan: Encourage positive coping strategies. Risks, benefits, side effects, alternatives discussed w/pt: Yes Patient agreeable to treatment: Yes Consult Discharge Plan - Plan Referrals: [facility] [Outside] - 09/16/16 1:00 pm (The above appointment is Sheldon Milligan, to establish you as a client and to begin mental health counseling services. Please arrive 15 minutes early to complete paperwork. Please bring your insurance card and photo ID. Sheldon can refer you for case management and psychiatry services as well if indicated. If you are unable to keep this appointment, 24 hour business notice of cancellation is expected. This is the first available appointment. You may contact the office regularly to check for cancellations that may allow you to be seen sooner. ) [facility] [Outside] - 09/16/16 8:30 am (The above appointment is with Ladi Hudson to establish you in primary care. Please arrive 15 minutes early to complete paperwork. Please bring your insurance card , photo ID and medications in their original bottles. If you do not have insurance, bring proof of income to apply for the sliding fee scale. If you are unable to keep this appointment, 24 hour business notice of cancellation is expected. This is the first available appointment. You may contact the office regularly to check for cancellations that may allow you to be seen sooner. )
[2016-09-02] MEDS: traZODone 50 MG TABLET PO PRN (20:55)
[2016-09-03] MEDS: Nicotine 21 MG PATCH.TD24 TD SCH (08:28)
[2016-09-03] MEDS: Aspirin Enteric Coated 81 MG Tablet PO SCH (08:29)
[2016-09-03] MEDS: *HR* Metformin 500 MG TABLET PO SCH (08:29)
[2016-09-03] MEDS: risperiDONE 0.25 MG TABLET PO SCH (08:30)
[2016-09-03 09:34] VITALS: BP 118/83
--- NOTE | 2016-09-03 11:06 | Discharge Summary ---
Date of Encounter: 09/03/16 Time of Encounter: 09:45 Diagnosis - Discharge Diagnosis (1) Major depressive disorder, recurrent severe without psychotic features Priority: Primary Status: Acute (2) Anxiety Priority: Secondary Status: Acute Medications - Discharge Medications Prescriptions: risperiDONE [RisperDAL] 0.5 mg PO BID #60 tablet Sertraline [Zoloft] 50 mg PO DAILY #30 tablet traZODone [TraZODone] 100 mg PO HS PRN #60 tablet PRN Reason: Insomnia Albuterol Sulfate [Ventolin Hfa] 2 puff IH Q4-6H PRN 08/31/16 [History] Aspirin Enteric Coated [Aspirin EC] 81 mg PO DAILY 08/31/16 [History] Atorvastatin [Lipitor] 10 mg PO HS 08/31/16 [History] Levothyroxine [Synthroid] 50 mcg PO 0630 08/31/16 [History] Metformin HCl [Glucophage] 1,000 mg PO BIDWM 08/31/16 [History] Sertraline [Zoloft] 50 mg PO DAILY #30 tablet 09/03/16 [Rx] risperiDONE [RisperDAL] 0.5 mg PO BID #60 tablet 09/03/16 [Rx] traZODone [TraZODone] 100 mg PO HS PRN #60 tablet 09/03/16 [Rx] Allergies codeine Allergy (Verified 08/30/16 18:54) Hives Penicillins Allergy (Verified 08/30/16 18:54) Hives Provider Date of admission: 08/30/16 23:36 Primary care physician: PCP NO Assessment and Plan - Patient/Caregiver Discharge Instructions Activity: resume usual activities as tolerated Diet: regular diet - Follow up Plan Follow up with: [facility] [Outside] - 09/16/16 1:00 pm (The above appointment is Sheldon Milligan, to establish you as a client and to begin mental health counseling services. Please arrive 15 minutes early to complete paperwork. Please bring your insurance card and photo ID. Sheldon can refer you for case management, partial hospitalization programming, and psychiatry services as well if indicated. If you are unable to keep this appointment, 24 hour business notice of cancellation is expected. This is the first available appointment. You may contact the office regularly to check for cancellations that may allow you to be seen sooner. ) [facility] [Outside] - 09/16/16 8:30 am (The above appointment is with Ladi Hudson to establish you in primary care. Please arrive 15 minutes early to complete paperwork. Please bring your insurance card , photo ID and medications in their original bottles. If you do not have insurance, bring proof of income to apply for the sliding fee scale. If you are unable to keep this appointment, 24 hour business notice of cancellation is expected. This is the first available appointment. You may contact the office regularly to check for cancellations that may allow you to be seen sooner. ) Functional capacity at discharge: independent ambulation Overall status at discharge: Stable Disposition: Home, Self-Care Hospital Course Hospital course: Mr. Coy is a 56 year old male with a history of depression and anxiety and a remote history of substance abuse who presented to the hospital with depression and suicidal ideations. Patient was admitted to for psychiatric stabilization. He was incorporated into the therapeutic milieu and offered group and individual as well as recreational therapy. He also offered psychoeducational materials and supportive therapy. He was placed on suicide precautions and close observation per unit protocol. Patient was restarted on home medicines of Zoloft, Risperdal, trazodone. Patient felt that these medications have been not working as well for some time. He requested increases and Zoloft was increased to 50 mg by mouth daily. Risperdal was increased to 0.5 mg by mouth twice a day and trazodone was increased to 100 mg by mouth daily. These dosages were tolerated well and patient reported improvement in his symptoms. Over the course of the hospital stay the patient became more interactive and less depressed. He denied suicidal or homicidal ideation, intent, or plan. Patient was willing to follow up with outpatient mental health providers and continue his treatment as an outpatient. He is discharged in stable condition with follow-ups and place. Prescription sent to patient's local pharmacy. - Time Spent with Patient Total time spent providing and/or coordinating discharge services: Less than 30 minutes Quality - Multiple Antipsychotics Patient discharged on 2 or more antipsychotic medications: No Procedures - Procedures Procedures: Medication Management, Crisis Stabilization, Supportive Therapy, Group Therapy, Psychoeducational Therapy Mental Status Exam - Mental Status Exam Patient orientation: Yes Person, Yes Time, Yes Place Level of alertness: Alert Patient appearance: Appropriate, Well Groomed Behavior: calm, cooperative Psychomotor activity: Normal Eye contact: Maintains Eye Contact Mood description: Euthymic/stable Affect description: congruent with mood, full range Speech pattern: Normal rate, Normal rhythm, Normal tone Speech Volume: Normal Thought process: Linear, Goal Oriented Thought Content: No Suicidal ideation, No Homicidal ideation, No Overt delusions Perceptual Disturbances: No Auditory hallucinations, No Visual hallucinations Judgment: Limited Insight: Partial
== END 2016-09-03 14:45 | disposition home or self-care (01) | DRG 885 ==
LOC: EMEROO 18:49 → 1ANU 23:36
PROVIDERS: ADMIT Student in an Organized Health Care Education/Training Program; ATTEND Student in an Organized Health Care Education/Training Program

== ENCOUNTER 2020-06-13 20:13 | Inpatient (IN) ==
[2020-06-14] MEDS ORDERED: Dextrose Gel 15 GM/37.5 ML TUBE PO PRN ×2 (03:34)
[2020-06-14] MEDS ORDERED: Acetaminophen 325 MG TABLET PO PRN (03:34)
[2020-06-14] MEDS ORDERED: Naloxone 0.4 MG/ML INJ IVP PRN (03:34)
[2020-06-14] MEDS ORDERED: *HR* Promethazine 25 MG/ML VIAL IM PRN (03:34)
[2020-06-14] MEDS ORDERED: *HR* Dextrose 50 % in Water (Vial) 50 ML VIAL IVP PRN (03:34)
[2020-06-14] MEDS ORDERED: Ondansetron 4 MG/2 ML VIAL IVP PRN (03:34)
[2020-06-14] MEDS ORDERED: D5% in Water 1,000 ML IVC PRN (03:34)
[2020-06-14] MEDS ORDERED: Melatonin 3 MG TABLET PO PRN (03:34)
[2020-06-14 04:35] LABS: Basophils # 0.1 K/mcL (0.0-0.2); Eosinophils # 0.7 K/mcL (0.0-0.6); Eosinophils % 5.8 %; Hematocrit 30.9 % (37.5-50.1); Hemoglobin 10.2 g/dL (12.9-16.9); Immature Granulocytes % 0.2 % (0-4); Lymphocytes # 2.4 K/mcL (0.6-4.6); Lymphocytes % 20.1 %; Mean Corpuscular Hemoglobin 28.4 pg (28.0-33.3); Mean Corpuscular Volume 86.1 fL (83.0-100.0); Monocytes # 0.9 K/mcL (0.0-1.3); Monocytes % 7.7 %; Neutrophils # 7.8 K/mcL (1.6-8.9); Platelet Count 363 K/mcL (140-400); Red Blood Count 3.59 M/mcL (4.19-5.50); Red Cell Distribution Width 12.4 % (11.5-14.5); Segmented Neutrophils % 65.2 %
[2020-06-14 04:42] LABS: Prothrombin Time 11.7 Seconds (9.4-12.1)
[2020-06-14] MEDS: 0.9 % Sodium Chloride 1,000 ML IVC SCH ×2 (04:51→16:39)
[2020-06-14] MEDS: Vancomycin 1,250 MG/262.5 ML IV.SOLN IVPB SCH ×2 (04:51→16:49)
[2020-06-14 05:00] LABS: Alanine Aminotransferase 10 Units/L (7-52); Albumin 3.7 g/dL (3.5-5.7); Albumin/Globulin Ratio 1.4 (1.1-2.2); Alkaline Phosphatase 69 Units/L (34-104); Aspartate Amino Transferase 11 Units/L (13-39); BUN/Creatinine Ratio 28 (6-26); Bilirubin,Total 0.2 mg/dL (0.3-1.0); Blood Urea Nitrogen 29 mg/dL (8-23); Calcium 8.7 mg/dL (8.6-10.3); Carbon Dioxide 19 mEq/L (23-29); Chloride 108 mEq/L (98-107); Globulin 2.6 g/dL (2.4-3.5); Glucose 156 mg/dL (70-105); Osmolality,Calculated 287 (280-300); Potassium 4.2 mEq/L (3.5-5.1); Sodium 134 mEq/L (136-145); Total Protein 6.3 g/dL (6.4-8.9); eGFR For African Americans > 60 (> 60); eGFR For Non-African Americans > 60 (> 60)
[2020-06-14] MEDS: Vancomycin Oral Soln 125 MG/2.5 ML UDC PO SCH ×5 (05:30→20:25)
[2020-06-14] MEDS ORDERED: Perflutren Lipid Microsphere 1.3 ML in 0.9 % Sodium Chloride 8.7 ML IVP PRN (07:48)
[2020-06-14] MEDS: Insulin LISPRO 300 UNITS/3 ML VIAL SUBQ SCH ×4 (09:23→20:26)
[2020-06-14] MEDS ORDERED: Ipratropium/Albuterol Neb 3 ML IH PRN (13:53)
[2020-06-14] MEDS: Cefepime HCl 2,000 MG in 0.9 % Sodium Chloride Mini Bag 100 ML IVPB SCH (16:38)
[2020-06-15] MEDS: Cefepime HCl 2,000 MG in 0.9 % Sodium Chloride Mini Bag 100 ML IVPB SCH ×4 (00:17→23:53)
[2020-06-15 01:49] LABS: Hematocrit 30.3 % (37.5-50.1); Hemoglobin 10.1 g/dL (12.9-16.9); Mean Corpuscular HGB Conc 33.3 g/dL (31.6-35.5); Mean Corpuscular Hemoglobin 29.1 pg (28.0-33.3); Mean Corpuscular Volume 87.3 fL (83.0-100.0); Mean Platelet Volume 9.3 fL (9.4-12.4); Platelet Count 341 K/mcL (140-400); Red Blood Count 3.47 M/mcL (4.19-5.50); Red Cell Distribution Width 12.2 % (11.5-14.5); White Blood Count 10.2 K/mcL (4.3-11.1)
[2020-06-15 02:09] LABS: Estimated Average Glucose 220 mg/dl; Hemoglobin A1C 9.3 %
[2020-06-15 02:10] LABS: % Iron Saturation 25 % (20-55); Iron 55 mcg/dL (65-175); Transferrin 155 mg/dL (203-362)
[2020-06-15 02:16] LABS: BUN/Creatinine Ratio 24 (6-26); Blood Urea Nitrogen 22 mg/dL (8-23); Calcium 8.5 mg/dL (8.6-10.3); Carbon Dioxide 19 mEq/L (23-29); Chloride 107 mEq/L (98-107); Glucose 206 mg/dL (70-105); Magnesium 1.4 mg/dL (1.6-2.6); Osmolality,Calculated 287 (280-300); Phosphorous 3.5 mg/dL (2.7-4.5); Potassium 4.6 mEq/L (3.5-5.1); Sodium 134 mEq/L (136-145); eGFR For African Americans > 60 (> 60); eGFR For Non-African Americans > 60 (> 60)
[2020-06-15 02:28] LABS: Ferritin 168 ng/mL (20-250)
[2020-06-15 02:33] LABS: Folate 16.5 ng/mL (3.0-16.0)
[2020-06-15] MEDS: Vancomycin 1,250 MG/262.5 ML IV.SOLN IVPB SCH ×2 (05:34→17:54)
[2020-06-15] MEDS ORDERED: Iron Sucrose Complex 400 MG in 0.9 % Sodium Chloride 250 ML IVPB ONE (07:47)
[2020-06-15] MEDS: Cyanocobalamin (B-12) 1,000 MCG TABLET PO SCH (08:07)
[2020-06-15] MEDS: Multivit/Ca/Min/Fe/FA 1 TAB TABLET PO SCH (08:07)
[2020-06-15] MEDS: Vancomycin Oral Soln 125 MG/2.5 ML UDC PO SCH ×2 (08:08→14:17)
[2020-06-15] MEDS: Insulin LISPRO 300 UNITS/3 ML VIAL SUBQ SCH ×4 (08:09→20:56)
[2020-06-15] MEDS: Calcium Gluconate 1gm/50mL 1 GM/50 ML BAG IVPB SCH ×2 (09:09→10:17)
[2020-06-15] MEDS: Nicotine 21 MG PATCH.TD24 TD SCH (14:17)
[2020-06-15] MEDS: *HR* Heparin 5,000 UNIT/ML VIAL SQ SCH (17:53)
[2020-06-16 04:41] LABS: Basophils # 0.1 K/mcL (0.0-0.2); Eosinophils # 0.7 K/mcL (0.0-0.6); Eosinophils % 7.3 %; Hematocrit 31.1 % (37.5-50.1); Hemoglobin 10.2 g/dL (12.9-16.9); Immature Granulocytes % 0.4 % (0-4); Lymphocytes # 1.9 K/mcL (0.6-4.6); Lymphocytes % 18.5 %; Mean Corpuscular HGB Conc 32.8 g/dL (31.6-35.5); Mean Corpuscular Hemoglobin 28.3 pg (28.0-33.3); Mean Corpuscular Volume 86.4 fL (83.0-100.0); Mean Platelet Volume 9.4 fL (9.4-12.4); Monocytes % 9.9 %; Neutrophils # 6.3 K/mcL (1.6-8.9); Platelet Count 359 K/mcL (140-400); Segmented Neutrophils % 62.9 %
[2020-06-16 04:54] LABS: BUN/Creatinine Ratio 29 (6-26); Blood Urea Nitrogen 24 mg/dL (8-23); Calcium 8.8 mg/dL (8.6-10.3); Carbon Dioxide 18 mEq/L (23-29); Chloride 105 mEq/L (98-107); Glucose 227 mg/dL (70-105); Magnesium 1.7 mg/dL (1.6-2.6); Osmolality,Calculated 285 (280-300); Phosphorous 3.1 mg/dL (2.7-4.5); Potassium 4.7 mEq/L (3.5-5.1); Sodium 132 mEq/L (136-145); eGFR For African Americans > 60 (> 60); eGFR For Non-African Americans > 60 (> 60)
[2020-06-16] MEDS: Vancomycin 1,250 MG/262.5 ML IV.SOLN IVPB SCH ×2 (05:00→16:20)
[2020-06-16] MEDS: *HR* Heparin 5,000 UNIT/ML VIAL SQ SCH ×2 (05:00→16:21)
[2020-06-16 05:24] LABS: Triiodothyronine (T3) Total 0.86 ng/mL (0.87-1.78)
[2020-06-16] MEDS: Cefepime HCl 2,000 MG in 0.9 % Sodium Chloride Mini Bag 100 ML IVPB SCH ×3 (07:47→23:42)
[2020-06-16] MEDS: Cyanocobalamin (B-12) 1,000 MCG TABLET PO SCH (07:48)
[2020-06-16] MEDS: Multivit/Ca/Min/Fe/FA 1 TAB TABLET PO SCH (07:48)
[2020-06-16] MEDS: Aspirin 81 MG TAB.CHEW PO SCH (07:48)
[2020-06-16] MEDS: Nicotine 21 MG PATCH.TD24 TD SCH (07:48)
[2020-06-16] MEDS: Insulin LISPRO 300 UNITS/3 ML VIAL SUBQ SCH ×3 (07:53→17:07)
[2020-06-16] MEDS ORDERED: Insulin LISPRO 300 UNITS/3 ML VIAL SUBQ SCH (13:46)
[2020-06-16] MEDS: Insulin DETEMIR 100 UNIT/ML X5UNITS SUBQ SCH (19:42)
[2020-06-17 01:50] LABS: Basophils # 0.1 K/mcL (0.0-0.2); Basophils % 1.2 %; Eosinophils # 0.8 K/mcL (0.0-0.6); Eosinophils % 7.2 %; Hematocrit 32.1 % (37.5-50.1); Hemoglobin 10.9 g/dL (12.9-16.9); Immature Granulocytes % 0.4 % (0-4); Lymphocytes # 2.3 K/mcL (0.6-4.6); Lymphocytes % 20.2 %; Mean Corpuscular Hemoglobin 28.8 pg (28.0-33.3); Mean Corpuscular Volume 84.7 fL (83.0-100.0); Mean Platelet Volume 8.8 fL (9.4-12.4); Monocytes # 1.2 K/mcL (0.0-1.3); Neutrophils # 6.7 K/mcL (1.6-8.9); Platelet Count 348 K/mcL (140-400); Red Blood Count 3.79 M/mcL (4.19-5.50); Red Cell Distribution Width 12.1 % (11.5-14.5); White Blood Count 11.3 K/mcL (4.3-11.1)
[2020-06-17 02:08] LABS: BUN/Creatinine Ratio 28 (6-26); Blood Urea Nitrogen 27 mg/dL (8-23); Calcium 8.8 mg/dL (8.6-10.3); Carbon Dioxide 18 mEq/L (23-29); Chloride 107 mEq/L (98-107); Glucose 122 mg/dL (70-105); Magnesium 1.6 mg/dL (1.6-2.6); Osmolality,Calculated 282 (280-300); Phosphorous 3.3 mg/dL (2.7-4.5); Potassium 4.7 mEq/L (3.5-5.1); Sodium 133 mEq/L (136-145); eGFR For African Americans > 60 (> 60); eGFR For Non-African Americans > 60 (> 60)
[2020-06-17] MEDS: Vancomycin 1,250 MG/262.5 ML IV.SOLN IVPB SCH (03:02)
[2020-06-17] MEDS: *HR* Heparin 5,000 UNIT/ML VIAL SQ SCH ×2 (05:29→17:40)
[2020-06-17] MEDS: Cyanocobalamin (B-12) 1,000 MCG TABLET PO SCH (09:07)
[2020-06-17] MEDS: Aspirin 81 MG TAB.CHEW PO SCH (09:07)
[2020-06-17] MEDS: Nicotine 21 MG PATCH.TD24 TD SCH (09:08)
[2020-06-17] MEDS: Insulin LISPRO 300 UNITS/3 ML VIAL SUBQ SCH ×3 (09:09→17:55)
[2020-06-17] MEDS: Multivit/Ca/Min/Fe/FA 1 TAB TABLET PO SCH (09:13)
[2020-06-17] MEDS: Cefepime HCl 2,000 MG in 0.9 % Sodium Chloride Mini Bag 100 ML IVPB SCH ×3 (14:32→23:24)
[2020-06-17] MEDS: Insulin DETEMIR 100 UNIT/ML X5UNITS SUBQ SCH (20:35)
[2020-06-18 04:02] LABS: BUN/Creatinine Ratio 30 (6-26); Blood Urea Nitrogen 29 mg/dL (8-23); Carbon Dioxide 21 mEq/L (23-29); Chloride 107 mEq/L (98-107); Glucose 148 mg/dL (70-105); Magnesium 2.1 mg/dL (1.6-2.6); Osmolality,Calculated 285 (280-300); Potassium 4.8 mEq/L (3.5-5.1); Sodium 133 mEq/L (136-145); eGFR For African Americans > 60 (> 60); eGFR For Non-African Americans > 60 (> 60)
[2020-06-18] MEDS: *HR* Heparin 5,000 UNIT/ML VIAL SQ SCH ×2 (05:49→17:45)
[2020-06-18] MEDS ORDERED: 0.9 % Sodium Chloride 2,000 ML ONE (07:05)
[2020-06-18] MEDS ORDERED: Isovue-300 200 mL Infus..BTL ONE ×2 (07:05→07:11)
[2020-06-18] MEDS ORDERED: Heparin 1,000 UNITS/500 mL 500 ML ONE (07:05)
[2020-06-18] MEDS ORDERED: *HR* Heparin 10,000 UNIT/10 ML VIAL ONE (07:05)
[2020-06-18] MEDS: Cefepime HCl 2,000 MG in 0.9 % Sodium Chloride Mini Bag 100 ML IVPB SCH ×3 (07:46→23:50)
[2020-06-18] MEDS: Insulin LISPRO 300 UNITS/3 ML VIAL SUBQ SCH ×3 (07:56→17:45)
[2020-06-18] MEDS ORDERED: *HR* Midazolam HCl 2 MG/2 ML VIAL ONE (07:59)
[2020-06-18] MEDS: Cyanocobalamin (B-12) 1,000 MCG TABLET PO SCH (10:37)
[2020-06-18] MEDS: Nicotine 21 MG PATCH.TD24 TD SCH (10:37)
[2020-06-18] MEDS: Multivit/Ca/Min/Fe/FA 1 TAB TABLET PO SCH (10:37)
[2020-06-18] MEDS: Aspirin 81 MG TAB.CHEW PO SCH (10:38)
[2020-06-18] MEDS: Insulin DETEMIR 100 UNIT/ML X5UNITS SUBQ SCH (23:33)
[2020-06-19] MEDS: *HR* Heparin 5,000 UNIT/ML VIAL SQ SCH (04:50)
[2020-06-19 05:13] LABS: Hematocrit 29.9 % (37.5-50.1); Hemoglobin 9.9 g/dL (12.9-16.9); Mean Corpuscular HGB Conc 33.1 g/dL (31.6-35.5); Mean Corpuscular Hemoglobin 28.1 pg (28.0-33.3); Mean Corpuscular Volume 84.9 fL (83.0-100.0); Mean Platelet Volume 8.8 fL (9.4-12.4); Platelet Count 318 K/mcL (140-400); Red Blood Count 3.52 M/mcL (4.19-5.50); Red Cell Distribution Width 12.4 % (11.5-14.5); White Blood Count 9.1 K/mcL (4.3-11.1)
[2020-06-19 05:31] LABS: Vancomycin,Trough 20 mcg/mL (5-10)
[2020-06-19 06:24] LABS: BUN/Creatinine Ratio 25 (6-26); Blood Urea Nitrogen 27 mg/dL (8-23); Calcium 8.7 mg/dL (8.6-10.3); Carbon Dioxide 23 mEq/L (23-29); Chloride 108 mEq/L (98-107); Glucose 147 mg/dL (70-105); Magnesium 1.9 mg/dL (1.6-2.6); Osmolality,Calculated 286 (280-300); Phosphorous 3.6 mg/dL (2.7-4.5); Potassium 5.3 mEq/L (3.5-5.1); Sodium 134 mEq/L (136-145); eGFR For African Americans > 60 (> 60); eGFR For Non-African Americans > 60 (> 60)
[2020-06-19] MEDS: Insulin LISPRO 300 UNITS/3 ML VIAL SUBQ SCH ×3 (07:30→16:53)
[2020-06-19] MEDS: Cefepime HCl 2,000 MG in 0.9 % Sodium Chloride Mini Bag 100 ML IVPB SCH ×2 (09:10→17:40)
[2020-06-19] MEDS: Aspirin 81 MG TAB.CHEW PO SCH (09:26)
[2020-06-19] MEDS: Nicotine 21 MG PATCH.TD24 TD SCH (09:26)
[2020-06-19] MEDS: Multivit/Ca/Min/Fe/FA 1 TAB TABLET PO SCH (09:26)
[2020-06-19] MEDS: Cyanocobalamin (B-12) 1,000 MCG TABLET PO SCH (09:26)
[2020-06-19] MEDS ORDERED: *HR* Propofol 200 MG/20 ML VIAL IVP ONE (14:40)
[2020-06-19] MEDS ORDERED: Lidocaine -MPF 2% 2 ML VIAL ONE (14:40)
[2020-06-19] MEDS ORDERED: *HR* FentaNYL (PF) 100 MCG/2 ML VIAL ONE (17:08)
[2020-06-19] MEDS ORDERED: Ondansetron 4 MG/2 ML VIAL ONE (17:59)
[2020-06-19] MEDS ORDERED: Albuterol 2.5 MG/3 ML NEBULIZER IH PRN ×2 (18:29→19:23)
[2020-06-19] MEDS ORDERED: *HR* HYDROmorphone (PF) 1 MG/ML SYRINGE IVP PRN ×2 (18:29→19:23)
[2020-06-19] MEDS ORDERED: Nitroglycerin 0.4 MG TAB.SUBL SL PRN ×2 (18:29→19:23)
[2020-06-19] MEDS ORDERED: Naloxone 0.4 MG/ML INJ IVP PRN ×3 (18:29→19:23)
[2020-06-19] MEDS ORDERED: Ondansetron 4 MG/2 ML VIAL IVP PRN ×3 (18:29→19:23)
[2020-06-19] MEDS ORDERED: *HR* FentaNYL (PF) 100 MCG/2 ML VIAL IVP PRN ×2 (18:29→19:23)
[2020-06-19] MEDS ORDERED: D5% in Water 1,000 ML IVC PRN (19:23)
[2020-06-19] MEDS ORDERED: *HR* Promethazine 25 MG/ML VIAL IM PRN (19:23)
[2020-06-19] MEDS ORDERED: *HR* Dextrose 50 % in Water (Vial) 50 ML VIAL IVP PRN (19:23)
[2020-06-19] MEDS ORDERED: Acetaminophen 325 MG TABLET PO PRN (19:23)
[2020-06-19] MEDS ORDERED: Dextrose Gel 15 GM/37.5 ML TUBE PO PRN ×2 (19:23)
[2020-06-19] MEDS ORDERED: Perflutren Lipid Microsphere 1.3 ML in 0.9 % Sodium Chloride 8.7 ML IVP PRN (19:23)
[2020-06-19] MEDS ORDERED: Melatonin 3 MG TABLET PO PRN (19:23)
[2020-06-19] MEDS ORDERED: Ipratropium/Albuterol Neb 3 ML IH PRN (19:23)
[2020-06-19] MEDS ORDERED: Vancomycin 1,500 MG/265 ML IV.SOLN IVPB SCH (21:00)
[2020-06-19] MEDS: Insulin DETEMIR 100 UNIT/ML X5UNITS SUBQ SCH (22:26)
[2020-06-19] MEDS: Vancomycin 1,500 MG/265 ML IV.SOLN IVPB SCH (22:26)
[2020-06-20] MEDS: Cefepime HCl 2,000 MG in 0.9 % Sodium Chloride Mini Bag 100 ML IVPB SCH ×4 (00:11→23:33)
[2020-06-20 03:42] LABS: Hematocrit 30.8 % (37.5-50.1); Hemoglobin 10.3 g/dL (12.9-16.9); Mean Corpuscular HGB Conc 33.4 g/dL (31.6-35.5); Mean Corpuscular Hemoglobin 28.7 pg (28.0-33.3); Mean Corpuscular Volume 85.8 fL (83.0-100.0); Mean Platelet Volume 8.7 fL (9.4-12.4); Platelet Count 327 K/mcL (140-400); Red Blood Count 3.59 M/mcL (4.19-5.50); Red Cell Distribution Width 12.3 % (11.5-14.5); White Blood Count 10.4 K/mcL (4.3-11.1)
[2020-06-20 03:58] LABS: BUN/Creatinine Ratio 22 (6-26); Blood Urea Nitrogen 21 mg/dL (8-23); Calcium 8.8 mg/dL (8.6-10.3); Carbon Dioxide 23 mEq/L (23-29); Chloride 105 mEq/L (98-107); Glucose 205 mg/dL (70-105); Magnesium 1.8 mg/dL (1.6-2.6); Osmolality,Calculated 285 (280-300); Phosphorous 3.8 mg/dL (2.7-4.5); Potassium 4.7 mEq/L (3.5-5.1); Sodium 133 mEq/L (136-145); eGFR For African Americans > 60 (> 60); eGFR For Non-African Americans > 60 (> 60)
[2020-06-20] MEDS: *HR* Heparin 5,000 UNIT/ML VIAL SQ SCH ×2 (05:46→16:50)
[2020-06-20] MEDS: Insulin LISPRO 300 UNITS/3 ML VIAL SUBQ SCH ×3 (07:43→17:03)
[2020-06-20] MEDS: Nicotine 21 MG PATCH.TD24 TD SCH (08:15)
[2020-06-20] MEDS: Aspirin 81 MG TAB.CHEW PO SCH (08:15)
[2020-06-20] MEDS: Cyanocobalamin (B-12) 1,000 MCG TABLET PO SCH (08:15)
[2020-06-20] MEDS: Multivit/Ca/Min/Fe/FA 1 TAB TABLET PO SCH (08:15)
[2020-06-20] MEDS: Insulin DETEMIR 100 UNIT/ML X5UNITS SUBQ SCH (23:33)
[2020-06-20] MEDS: Vancomycin 1,500 MG/265 ML IV.SOLN IVPB SCH (23:37)
[2020-06-21] MEDS: *HR* Heparin 5,000 UNIT/ML VIAL SQ SCH ×2 (06:17→17:23)
[2020-06-21 06:44] LABS: Basophils # 0.1 K/mcL (0.0-0.2); Basophils % 0.8 %; Eosinophils # 0.6 K/mcL (0.0-0.6); Eosinophils % 5.6 %; Hematocrit 30.9 % (37.5-50.1); Hemoglobin 10.4 g/dL (12.9-16.9); Immature Granulocytes % 0.5 % (0-4); Lymphocytes # 2.1 K/mcL (0.6-4.6); Lymphocytes % 18.7 %; Mean Corpuscular HGB Conc 33.7 g/dL (31.6-35.5); Mean Corpuscular Hemoglobin 28.8 pg (28.0-33.3); Mean Corpuscular Volume 85.6 fL (83.0-100.0); Mean Platelet Volume 8.8 fL (9.4-12.4); Monocytes # 1.1 K/mcL (0.0-1.3); Monocytes % 9.7 %; Neutrophils # 7.1 K/mcL (1.6-8.9); Platelet Count 325 K/mcL (140-400); Red Blood Count 3.61 M/mcL (4.19-5.50); Red Cell Distribution Width 12.5 % (11.5-14.5); Segmented Neutrophils % 64.7 %
[2020-06-21 07:06] LABS: BUN/Creatinine Ratio 25 (6-26); Blood Urea Nitrogen 24 mg/dL (8-23); Calcium 9.3 mg/dL (8.6-10.3); Carbon Dioxide 24 mEq/L (23-29); Chloride 106 mEq/L (98-107); Glucose 149 mg/dL (70-105); Osmolality,Calculated 289 (280-300); Potassium 4.6 mEq/L (3.5-5.1); Sodium 136 mEq/L (136-145); eGFR For African Americans > 60 (> 60); eGFR For Non-African Americans > 60 (> 60)
[2020-06-21] MEDS: Insulin LISPRO 300 UNITS/3 ML VIAL SUBQ SCH ×3 (07:35→17:24)
[2020-06-21] MEDS: Nicotine 21 MG PATCH.TD24 TD SCH (09:42)
[2020-06-21] MEDS: Aspirin 81 MG TAB.CHEW PO SCH (09:42)
[2020-06-21] MEDS: Cyanocobalamin (B-12) 1,000 MCG TABLET PO SCH (09:42)
[2020-06-21] MEDS: Cefepime HCl 2,000 MG in 0.9 % Sodium Chloride Mini Bag 100 ML IVPB SCH ×3 (09:42→23:15)
[2020-06-21] MEDS: Multivit/Ca/Min/Fe/FA 1 TAB TABLET PO SCH (09:42)
[2020-06-21] MEDS: Insulin DETEMIR 100 UNIT/ML X5UNITS SUBQ SCH (20:40)
[2020-06-21] MEDS: Vancomycin 1,500 MG/265 ML IV.SOLN IVPB SCH (21:33)
[2020-06-22] MEDS: *HR* Heparin 5,000 UNIT/ML VIAL SQ SCH ×2 (04:18→16:49)
[2020-06-22 04:41] LABS: Basophils # 0.1 K/mcL (0.0-0.2); Basophils % 1.1 %; Eosinophils # 0.7 K/mcL (0.0-0.6); Eosinophils % 6.7 %; Hematocrit 29.7 % (37.5-50.1); Immature Granulocytes % 0.4 % (0-4); Lymphocytes # 2.5 K/mcL (0.6-4.6); Lymphocytes % 24.9 %; Mean Corpuscular HGB Conc 33.7 g/dL (31.6-35.5); Mean Corpuscular Hemoglobin 28.7 pg (28.0-33.3); Mean Corpuscular Volume 85.3 fL (83.0-100.0); Mean Platelet Volume 8.8 fL (9.4-12.4); Monocytes # 1.1 K/mcL (0.0-1.3); Monocytes % 10.6 %; Neutrophils # 5.6 K/mcL (1.6-8.9); Platelet Count 320 K/mcL (140-400); Red Blood Count 3.48 M/mcL (4.19-5.50); Red Cell Distribution Width 12.7 % (11.5-14.5); Segmented Neutrophils % 56.3 %; White Blood Count 9.9 K/mcL (4.3-11.1)
[2020-06-22 05:02] LABS: BUN/Creatinine Ratio 32 (6-26); Blood Urea Nitrogen 30 mg/dL (8-23); Carbon Dioxide 23 mEq/L (23-29); Chloride 107 mEq/L (98-107); Glucose 146 mg/dL (70-105); Osmolality,Calculated 289 (280-300); Potassium 4.8 mEq/L (3.5-5.1); Sodium 135 mEq/L (136-145); eGFR For African Americans > 60 (> 60); eGFR For Non-African Americans > 60 (> 60)
[2020-06-22] MEDS: Cefepime HCl 2,000 MG in 0.9 % Sodium Chloride Mini Bag 100 ML IVPB SCH ×2 (08:50→16:04)
[2020-06-22] MEDS: Insulin LISPRO 300 UNITS/3 ML VIAL SUBQ SCH ×3 (08:50→16:48)
[2020-06-22] MEDS: Multivit/Ca/Min/Fe/FA 1 TAB TABLET PO SCH (08:50)
[2020-06-22] MEDS: Aspirin 81 MG TAB.CHEW PO SCH (08:50)
[2020-06-22] MEDS: Cyanocobalamin (B-12) 1,000 MCG TABLET PO SCH (08:50)
[2020-06-22] MEDS: Nicotine 21 MG PATCH.TD24 TD SCH (08:51)
[2020-06-22] MEDS: Vancomycin 1,500 MG/265 ML IV.SOLN IVPB SCH (22:03)
[2020-06-22] MEDS: Insulin DETEMIR 100 UNIT/ML X5UNITS SUBQ SCH (22:03)
[2020-06-23] MEDS: Cefepime HCl 2,000 MG in 0.9 % Sodium Chloride Mini Bag 100 ML IVPB SCH ×3 (00:01→21:49)
[2020-06-23 04:09] LABS: Basophils # 0.1 K/mcL (0.0-0.2); Eosinophils # 0.8 K/mcL (0.0-0.6); Eosinophils % 7.2 %; Hematocrit 30.2 % (37.5-50.1); Immature Granulocytes % 0.5 % (0-4); Lymphocytes # 2.7 K/mcL (0.6-4.6); Lymphocytes % 24.7 %; Mean Corpuscular HGB Conc 33.1 g/dL (31.6-35.5); Mean Corpuscular Hemoglobin 28.6 pg (28.0-33.3); Mean Corpuscular Volume 86.3 fL (83.0-100.0); Monocytes # 1.1 K/mcL (0.0-1.3); Monocytes % 10.1 %; Neutrophils # 6.1 K/mcL (1.6-8.9); Platelet Count 315 K/mcL (140-400); Red Cell Distribution Width 12.7 % (11.5-14.5); Segmented Neutrophils % 56.5 %; White Blood Count 10.8 K/mcL (4.3-11.1)
[2020-06-23 04:21] LABS: BUN/Creatinine Ratio 29 (6-26); Blood Urea Nitrogen 32 mg/dL (8-23); Calcium 8.9 mg/dL (8.6-10.3); Carbon Dioxide 23 mEq/L (23-29); Chloride 104 mEq/L (98-107); Glucose 133 mg/dL (70-105); Osmolality,Calculated 285 (280-300); Potassium 4.7 mEq/L (3.5-5.1); Sodium 133 mEq/L (136-145); eGFR For African Americans > 60 (> 60); eGFR For Non-African Americans > 60 (> 60)
[2020-06-23] MEDS: *HR* Heparin 5,000 UNIT/ML VIAL SQ SCH ×2 (06:28→21:49)
[2020-06-23] MEDS: Insulin LISPRO 300 UNITS/3 ML VIAL SUBQ SCH ×3 (08:40→16:51)
[2020-06-23] MEDS: Cyanocobalamin (B-12) 1,000 MCG TABLET PO SCH (09:09)
[2020-06-23] MEDS: Aspirin 81 MG TAB.CHEW PO SCH (09:09)
[2020-06-23] MEDS: Multivit/Ca/Min/Fe/FA 1 TAB TABLET PO SCH (09:09)
[2020-06-23] MEDS: Nicotine 21 MG PATCH.TD24 TD SCH (09:10)
[2020-06-23 16:26] VITALS: BP 145/76; PULSE 93; TEMP 97.9; O2SAT 95
== END 2020-06-23 22:02 | disposition home health service (06) | DRG 616 ==
LOC: 3NENU → SUATTDRO 06-14 02:13
PROVIDERS: ADMIT Family Medicine; ATTEND Family Medicine

== ENCOUNTER 2020-08-19 19:17 | Inpatient (IN) ==
[2020-08-20] MEDS ORDERED: Naloxone 0.4 MG/ML INJ IVP PRN (00:50)
[2020-08-20] MEDS ORDERED: Ondansetron 4 MG/2 ML VIAL IVP PRN (00:50)
[2020-08-20] MEDS ORDERED: D5% in Water 1,000 ML IVC PRN (00:56)
[2020-08-20] MEDS ORDERED: Dextrose Gel 15 GM/37.5 ML TUBE PO PRN ×2 (00:56)
[2020-08-20] MEDS ORDERED: *HR* Dextrose 50 % in Water (Vial) 50 ML VIAL IVP PRN (00:56)
[2020-08-20] MEDS: Cefepime HCl 1,000 MG in 0.9 % Sodium Chloride Mini Bag 100 ML IVPB SCH ×3 (01:07→18:04)
[2020-08-20] MEDS: Vancomycin 1,250 MG/262.5 ML IV.SOLN IVPB SCH ×2 (01:45→13:08)
[2020-08-20 05:14] LABS: Basophils # 0.1 K/mcL (0.0-0.2); Basophils % 0.6 %; Eosinophils # 0.4 K/mcL (0.0-0.6); Eosinophils % 3.8 %; Hematocrit 30.3 % (37.5-50.1); Hemoglobin 10.5 g/dL (12.9-16.9); Immature Granulocytes % 0.4 % (0-4); Lymphocytes # 1.8 K/mcL (0.6-4.6); Mean Corpuscular HGB Conc 34.7 g/dL (31.6-35.5); Mean Corpuscular Hemoglobin 29.8 pg (28.0-33.3); Mean Corpuscular Volume 86.1 fL (83.0-100.0); Mean Platelet Volume 9.1 fL (9.4-12.4); Monocytes # 1.1 K/mcL (0.0-1.3); Monocytes % 9.9 %; Neutrophils # 7.8 K/mcL (1.6-8.9); Platelet Count 288 K/mcL (140-400); Red Blood Count 3.52 M/mcL (4.19-5.50); Red Cell Distribution Width 12.3 % (11.5-14.5); Segmented Neutrophils % 69.3 %; White Blood Count 11.2 K/mcL (4.3-11.1)
[2020-08-20 05:36] LABS: Alanine Aminotransferase 9 Units/L (7-52); Albumin 3.4 g/dL (3.5-5.7); Albumin/Globulin Ratio 1.2 (1.1-2.2); Alkaline Phosphatase 91 Units/L (34-104); Aspartate Amino Transferase 11 Units/L (13-39); BUN/Creatinine Ratio 16 (6-26); Bilirubin,Total 0.4 mg/dL (0.3-1.0); Blood Urea Nitrogen 17 mg/dL (8-23); Calcium 8.7 mg/dL (8.6-10.3); Carbon Dioxide 20 mEq/L (23-29); Chloride 105 mEq/L (98-107); Globulin 2.8 g/dL (2.4-3.5); Glucose 142 mg/dL (70-105); Osmolality,Calculated 280 (280-300); Potassium 4.5 mEq/L (3.5-5.1); Sodium 133 mEq/L (136-145); Total Protein 6.2 g/dL (6.4-8.9); eGFR For African Americans > 60 (> 60); eGFR For Non-African Americans > 60 (> 60)
[2020-08-20] MEDS: *HR* Heparin 5,000 UNIT/ML VIAL SQ SCH ×2 (06:09→18:03)
[2020-08-20] MEDS: Insulin LISPRO 300 UNITS/3 ML VIAL SUBQ SCH ×3 (06:15→19:39)
[2020-08-20] MEDS: Acetaminophen 325 MG TABLET PO PRN (18:03)
[2020-08-21] MEDS: Insulin LISPRO 300 UNITS/3 ML VIAL SUBQ SCH ×4 (00:15→16:22)
[2020-08-21] MEDS: Cefepime HCl 1,000 MG in 0.9 % Sodium Chloride Mini Bag 100 ML IVPB SCH ×2 (01:05→08:23)
[2020-08-21] MEDS: Vancomycin 1,250 MG/262.5 ML IV.SOLN IVPB SCH (01:40)
[2020-08-21] MEDS: *HR* Heparin 5,000 UNIT/ML VIAL SQ SCH ×2 (05:44→16:07)
[2020-08-21] MEDS: Acetaminophen 325 MG TABLET PO PRN (11:29)
[2020-08-21] MEDS: Aspirin 81 MG TAB.CHEW PO SCH (11:29)
[2020-08-21] MEDS: Nicotine 21 MG PATCH.TD24 TD SCH (11:30)
[2020-08-21] MEDS: CARIPRAZINE HCL 3 MG PO SCH (16:16)
[2020-08-21] MEDS: Cefepime HCl 2,000 MG in Water for inj. (sterile) 20 ML IVP SCH (16:27)
[2020-08-21] MEDS ORDERED: Insulin DETEMIR 100 UNIT/ML X5UNITS SUBQ SCH ×2 (21:00→21:45)
[2020-08-21] MEDS ORDERED: Insulin LISPRO 300 UNITS/3 ML VIAL SUBQ SCH (21:00)
[2020-08-21] MEDS ORDERED: Topiramate 25 MG TABLET PO SCH (21:00)
[2020-08-22 04:48] LABS: Basophils # 0.1 K/mcL (0.0-0.2); Basophils % 0.6 %; Eosinophils # 0.6 K/mcL (0.0-0.6); Eosinophils % 4.9 %; Hematocrit 29.4 % (37.5-50.1); Hemoglobin 9.7 g/dL (12.9-16.9); Immature Granulocytes % 0.4 % (0-4); Lymphocytes # 2.1 K/mcL (0.6-4.6); Mean Corpuscular Hemoglobin 28.4 pg (28.0-33.3); Mean Corpuscular Volume 86.2 fL (83.0-100.0); Mean Platelet Volume 8.9 fL (9.4-12.4); Monocytes # 1.1 K/mcL (0.0-1.3); Monocytes % 9.6 %; Neutrophils # 7.9 K/mcL (1.6-8.9); Platelet Count 316 K/mcL (140-400); Red Blood Count 3.41 M/mcL (4.19-5.50); Red Cell Distribution Width 12.1 % (11.5-14.5); Segmented Neutrophils % 66.5 %; White Blood Count 11.8 K/mcL (4.3-11.1)
[2020-08-22] MEDS: Cefepime HCl 2,000 MG in Water for inj. (sterile) 20 ML IVP SCH (04:59)
[2020-08-22 05:10] LABS: BUN/Creatinine Ratio 21 (6-26); Blood Urea Nitrogen 23 mg/dL (8-23); Carbon Dioxide 24 mEq/L (23-29); Chloride 102 mEq/L (98-107); Glucose 191 mg/dL (70-105); Osmolality,Calculated 285 (280-300); Potassium 4.3 mEq/L (3.5-5.1); Sodium 133 mEq/L (136-145); eGFR For African Americans > 60 (> 60); eGFR For Non-African Americans > 60 (> 60)
[2020-08-22] MEDS: *HR* Heparin 5,000 UNIT/ML VIAL SQ SCH (05:17)
[2020-08-22] MEDS: Acetaminophen 325 MG TABLET PO PRN (06:31)
[2020-08-22] MEDS: CARIPRAZINE HCL 3 MG PO SCH (08:19)
[2020-08-22] MEDS: Nicotine 21 MG PATCH.TD24 TD SCH (08:25)
[2020-08-22] MEDS: Aspirin 81 MG TAB.CHEW PO SCH (08:26)
[2020-08-22] MEDS: Insulin LISPRO 300 UNITS/3 ML VIAL SUBQ SCH ×2 (08:27→13:48)
[2020-08-22] MEDS ORDERED: Nicotine 21 MG PATCH.TD24 TD SCH (09:00)
[2020-08-22] MEDS ORDERED: Lidocaine -MPF 1% 5 ML AMPUL ID ONE (11:15)
[2020-08-22 12:04] VITALS: BP 147/97
== END 2020-08-22 16:48 | disposition home or self-care (01) | DRG 603 ==
LOC: 3NENU
PROVIDERS: ADMIT Internal Medicine; ATTEND Internal Medicine

== ENCOUNTER 2020-09-17 21:20 | Inpatient (IN) ==
[2020-09-18] MEDS ORDERED: Acetaminophen 325 MG TABLET PO PRN (00:06)
[2020-09-18] MEDS ORDERED: Naloxone 0.4 MG/ML INJ IVP PRN (00:06)
[2020-09-18] MEDS ORDERED: Ondansetron 4 MG/2 ML VIAL IVP PRN (00:06)
[2020-09-18] MEDS ORDERED: Melatonin 3 MG TABLET PO PRN (00:06)
[2020-09-18] MEDS ORDERED: *HR* Promethazine 25 MG/ML VIAL IM PRN (00:06)
[2020-09-18] MEDS ORDERED: Ringers Solution, Lactated 1,000 ML IVC SCH (00:15)
[2020-09-18 02:48] LABS: Basophils # 0.1 K/mcL (0.0-0.2); Basophils % 0.5 %; Eosinophils # 0.5 K/mcL (0.0-0.6); Eosinophils % 3.6 %; Hematocrit 28.7 % (37.5-50.1); Hemoglobin 9.6 g/dL (12.9-16.9); Immature Granulocytes % 0.4 % (0-4); Lymphocytes # 1.6 K/mcL (0.6-4.6); Lymphocytes % 11.3 %; Mean Corpuscular HGB Conc 33.4 g/dL (31.6-35.5); Mean Corpuscular Hemoglobin 29.4 pg (28.0-33.3); Mean Corpuscular Volume 87.8 fL (83.0-100.0); Mean Platelet Volume 9.1 fL (9.4-12.4); Monocytes # 1.5 K/mcL (0.0-1.3); Monocytes % 10.7 %; Neutrophils # 10.5 K/mcL (1.6-8.9); Platelet Count 342 K/mcL (140-400); Red Blood Count 3.27 M/mcL (4.19-5.50); Red Cell Distribution Width 12.1 % (11.5-14.5); Segmented Neutrophils % 73.5 %; White Blood Count 14.3 K/mcL (4.3-11.1)
[2020-09-18 02:57] LABS: Prothrombin Time 11.8 Seconds (9.4-12.1)
[2020-09-18 03:08] LABS: BUN/Creatinine Ratio 21 (6-26); Blood Urea Nitrogen 22 mg/dL (8-23); Calcium 8.3 mg/dL (8.6-10.3); Carbon Dioxide 21 mEq/L (23-29); Chloride 105 mEq/L (98-107); Chol/HDL Ratio 3.4 (0-4.9); Cholesterol 86 mg/dL (< 200); Glucose 166 mg/dL (70-105); HDL Cholesterol 25 mg/dL (40-59); LDL Cholesterol,Calculated 45 mg/dL (< 100); Magnesium 1.4 mg/dL (1.6-2.6); Osmolality,Calculated 283 (280-300); Potassium 4.2 mEq/L (3.5-5.1); Sodium 133 mEq/L (136-145); Triglycerides 78 mg/dL (< 150); eGFR For African Americans > 60 (> 60); eGFR For Non-African Americans > 60 (> 60)
[2020-09-18] MEDS: *HR* HYDROcodone/Acet 5/325 mg TABLET PO PRN (06:56)
[2020-09-18] MEDS: Piperacillin/Tazobactam 3.375 GM in 0.9 % Sodium Chloride Mini Bag 100 ML IVPB SCH ×2 (08:03→16:47)
[2020-09-18] MEDS: Vancomycin 1,250 MG/262.5 ML IV.SOLN IVPB SCH ×2 (09:57→19:46)
[2020-09-18] MEDS: *HR* OxyCODONE Immed Rel 5 MG TABLET PO PRN ×2 (09:57→18:23)
[2020-09-18] MEDS: Aspirin 81 MG TAB.CHEW PO SCH (10:00)
[2020-09-18 10:33] LABS: C-Reactive Protein 94 mg/L (Less than 10)
[2020-09-18] MEDS: Topiramate 25 MG TABLET PO SCH (19:46)
[2020-09-18] MEDS ORDERED: Dextrose Gel 15 GM/37.5 ML TUBE PO PRN ×2 (19:48)
[2020-09-18] MEDS ORDERED: D5% in Water 1,000 ML IVC PRN (19:48)
[2020-09-18] MEDS ORDERED: *HR* Dextrose 50 % in Water (Vial) 50 ML VIAL IVP PRN (19:48)
[2020-09-18] MEDS ORDERED: Insulin LISPRO 300 UNITS/3 ML VIAL SUBQ SCH (20:00)
[2020-09-18] MEDS ORDERED: Insulin DETEMIR 100 UNIT/ML X5UNITS SUBQ SCH (21:00)
[2020-09-19] MEDS: Piperacillin/Tazobactam 3.375 GM in 0.9 % Sodium Chloride Mini Bag 100 ML IVPB SCH ×3 (01:00→17:00)
[2020-09-19 06:11] LABS: Mean Corpuscular HGB Conc 33.3 g/dL (31.6-35.5); Mean Corpuscular Hemoglobin 28.7 pg (28.0-33.3); Platelet Count 371 K/mcL (140-400); Red Blood Count 3.14 M/mcL (4.19-5.50); Red Cell Distribution Width 11.8 % (11.5-14.5); White Blood Count 15.3 K/mcL (4.3-11.1)
[2020-09-19 06:13] LABS: INR 1.2
[2020-09-19 06:16] LABS: Activated Partial Thrombo Time 32.8 Seconds (26.0-36.0)
[2020-09-19 06:33] LABS: BUN/Creatinine Ratio 17 (6-26); Blood Urea Nitrogen 16 mg/dL (8-23); Calcium 8.6 mg/dL (8.6-10.3); Carbon Dioxide 23 mEq/L (23-29); Chloride 101 mEq/L (98-107); Glucose 202 mg/dL (70-105); Osmolality,Calculated 281 (280-300); Potassium 4.2 mEq/L (3.5-5.1); Sodium 132 mEq/L (136-145); eGFR For African Americans > 60 (> 60); eGFR For Non-African Americans > 60 (> 60)
[2020-09-19] MEDS: Insulin LISPRO 300 UNITS/3 ML VIAL SUBQ SCH ×2 (07:03→17:48)
[2020-09-19] MEDS: Vancomycin 1,250 MG/262.5 ML IV.SOLN IVPB SCH ×2 (07:36→21:51)
[2020-09-19] MEDS: *HR* OxyCODONE Immed Rel 5 MG TABLET PO PRN ×2 (07:37→20:32)
[2020-09-19] MEDS ORDERED: *HR* OxyCODONE Immed Rel 5 MG TABLET PO PRN (10:51)
[2020-09-19] MEDS ORDERED: *HR* FentaNYL (PF) 100 MCG/2 ML VIAL IVP PRN (10:51)
[2020-09-19] MEDS: Aspirin 81 MG TAB.CHEW PO SCH (10:58)
[2020-09-19] MEDS ORDERED: *HR* FentaNYL (PF) 100 MCG/2 ML VIAL ONE ×2 (11:02→12:51)
[2020-09-19] MEDS ORDERED: *HR* Midazolam HCl 2 MG/2 ML VIAL ONE ×2 (11:02)
[2020-09-19] MEDS ORDERED: *HR* Propofol 200 MG/20 ML VIAL IVP ONE (11:02)
[2020-09-19] MEDS ORDERED: *HR* Rocuronium Bromide 50 MG/5 ML VIAL ONE (11:04)
[2020-09-19] MEDS ORDERED: Lidocaine -MPF 2% 2 ML VIAL ONE (11:04)
[2020-09-19] MEDS ORDERED: Ondansetron 4 MG/2 ML VIAL ONE (11:09)
[2020-09-19] MEDS ORDERED: EPHEDrine 50 MG/ML VIAL ONE (12:47)
[2020-09-19] MEDS ORDERED: Vancomycin 1,000 MG, Sodium Chloride IRRigation 1,000 ML IR ONE ×2 (13:00→15:45)
[2020-09-19] MEDS ORDERED: *HR* Labetalol 20 MG/4 ML SYRINGE IVP ONE (13:01)
[2020-09-19] MEDS ORDERED: Ringers Solution, Lactated 1,000 ML ONE (13:37)
[2020-09-19] MEDS: *HR* HYDROmorphone PF 0.5 MG/0.5 ML SYRINGE IVP PRN ×4 (13:47→15:25)
[2020-09-19] MEDS: *HR* HYDROcodone/Acet 5/325 mg TABLET PO PRN (13:48)
[2020-09-19] MEDS ORDERED: Pregabalin 75 MG CAPSULE PO ONE (14:39)
[2020-09-19] MEDS ORDERED: cloNIDine HCL 0.1 MG TABLET PO ONE (14:40)
[2020-09-19] MEDS ORDERED: Acetaminophen IV 1,000 MG/100 ML BAG IVPB ONE (14:41)
[2020-09-19] MEDS: Topiramate 25 MG TABLET PO SCH ×2 (15:06→20:33)
[2020-09-19] MEDS ORDERED: *HR* Dextrose 50 % in Water (Vial) 50 ML VIAL IVP PRN (15:45)
[2020-09-19] MEDS ORDERED: Ondansetron 4 MG/2 ML VIAL IVP PRN (15:45)
[2020-09-19] MEDS ORDERED: Naloxone 0.4 MG/ML INJ IVP PRN (15:45)
[2020-09-19] MEDS ORDERED: Acetaminophen 325 MG TABLET PO PRN (15:45)
[2020-09-19] MEDS ORDERED: Dextrose Gel 15 GM/37.5 ML TUBE PO PRN ×2 (15:45)
[2020-09-19] MEDS ORDERED: Melatonin 3 MG TABLET PO PRN (15:45)
[2020-09-19] MEDS ORDERED: D5% in Water 1,000 ML IVC PRN (15:45)
[2020-09-19] MEDS ORDERED: *HR* Promethazine 25 MG/ML VIAL IM PRN (15:45)
[2020-09-19] MEDS ORDERED: Insulin DETEMIR 100 UNIT/ML X5UNITS SUBQ SCH (21:00)
[2020-09-20] MEDS: Insulin LISPRO 300 UNITS/3 ML VIAL SUBQ SCH ×4 (00:24→17:57)
[2020-09-20] MEDS: Piperacillin/Tazobactam 3.375 GM in 0.9 % Sodium Chloride Mini Bag 100 ML IVPB SCH ×4 (00:27→23:19)
[2020-09-20] MEDS: *HR* HYDROcodone/Acet 5/325 mg TABLET PO PRN ×3 (01:35→23:20)
[2020-09-20] MEDS: *HR* OxyCODONE Immed Rel 5 MG TABLET PO PRN ×3 (02:44→17:56)
[2020-09-20] MEDS ORDERED: Morphine Sulfate 2 MG/ML SYRINGE IVP ONE (04:45)
[2020-09-20] MEDS ORDERED: *HR* HYDROmorphone (PF) 1 MG/ML SYRINGE IVP ONE (04:52)
[2020-09-20 05:36] LABS: Hematocrit 26.1 % (37.5-50.1); Hemoglobin 8.7 g/dL (12.9-16.9); Mean Corpuscular HGB Conc 33.3 g/dL (31.6-35.5); Mean Corpuscular Hemoglobin 28.7 pg (28.0-33.3); Mean Corpuscular Volume 86.1 fL (83.0-100.0); Mean Platelet Volume 8.8 fL (9.4-12.4); Platelet Count 328 K/mcL (140-400); Red Blood Count 3.03 M/mcL (4.19-5.50); Red Cell Distribution Width 11.8 % (11.5-14.5)
[2020-09-20 05:55] LABS: BUN/Creatinine Ratio 15 (6-26); Blood Urea Nitrogen 17 mg/dL (8-23); Calcium 8.4 mg/dL (8.6-10.3); Carbon Dioxide 21 mEq/L (23-29); Chloride 100 mEq/L (98-107); Glucose 314 mg/dL (70-105); Magnesium 1.4 mg/dL (1.6-2.6); Osmolality,Calculated 282 (280-300); Potassium 4.4 mEq/L (3.5-5.1); Sodium 129 mEq/L (136-145); eGFR For African Americans > 60 (> 60); eGFR For Non-African Americans > 60 (> 60)
[2020-09-20] MEDS ORDERED: Magnesium Oxide 400 MG TABLET PO ONE (08:42)
[2020-09-20] MEDS: Aspirin 81 MG TAB.CHEW PO SCH (09:57)
[2020-09-20] MEDS: Vancomycin 1,250 MG/262.5 ML IV.SOLN IVPB SCH ×2 (09:57→21:12)
[2020-09-20] MEDS: 0.9 % Sodium Chloride 1,000 ML IVC SCH ×2 (09:59→23:19)
[2020-09-20] MEDS: Insulin DETEMIR 100 UNIT/ML X5UNITS SUBQ SCH ×2 (15:33→21:13)
[2020-09-20] MEDS: Nicotine 14 MG PATCH.TD24 TD SCH (15:34)
[2020-09-20] MEDS: Topiramate 25 MG TABLET PO SCH (21:12)
[2020-09-21] MEDS: *HR* OxyCODONE Immed Rel 5 MG TABLET PO PRN ×3 (03:27→18:10)
[2020-09-21 06:15] LABS: Hematocrit 25.9 % (37.5-50.1); Hemoglobin 8.3 g/dL (12.9-16.9); Mean Corpuscular Hemoglobin 27.9 pg (28.0-33.3); Mean Corpuscular Volume 86.9 fL (83.0-100.0); Mean Platelet Volume 9.2 fL (9.4-12.4); Platelet Count 366 K/mcL (140-400); Red Blood Count 2.98 M/mcL (4.19-5.50)
[2020-09-21 06:34] LABS: BUN/Creatinine Ratio 14 (6-26); Blood Urea Nitrogen 15 mg/dL (8-23); Calcium 8.1 mg/dL (8.6-10.3); Carbon Dioxide 22 mEq/L (23-29); Chloride 104 mEq/L (98-107); Glucose 231 mg/dL (70-105); Magnesium 1.4 mg/dL (1.6-2.6); Osmolality,Calculated 282 (280-300); Potassium 4.6 mEq/L (3.5-5.1); Sodium 132 mEq/L (136-145); eGFR For African Americans > 60 (> 60); eGFR For Non-African Americans > 60 (> 60)
[2020-09-21] MEDS: *HR* HYDROcodone/Acet 5/325 mg TABLET PO PRN (09:30)
[2020-09-21] MEDS: Magnesium Oxide 400 MG TABLET PO SCH (09:30)
[2020-09-21] MEDS: Aspirin 81 MG TAB.CHEW PO SCH (09:30)
[2020-09-21] MEDS: Insulin DETEMIR 100 UNIT/ML X5UNITS SUBQ SCH ×2 (09:31→21:09)
[2020-09-21] MEDS: Nicotine 14 MG PATCH.TD24 TD SCH (09:31)
[2020-09-21] MEDS: Piperacillin/Tazobactam 3.375 GM in 0.9 % Sodium Chloride Mini Bag 100 ML IVPB SCH (09:32)
[2020-09-21] MEDS: Insulin LISPRO 300 UNITS/3 ML VIAL SUBQ SCH ×3 (09:33→17:51)
[2020-09-21] MEDS: Vancomycin 1,250 MG/262.5 ML IV.SOLN IVPB SCH (09:34)
[2020-09-21] MEDS: Topiramate 25 MG TABLET PO SCH (21:09)
[2020-09-22] MEDS: *HR* OxyCODONE Immed Rel 5 MG TABLET PO PRN ×3 (02:09→15:00)
[2020-09-22 07:50] LABS: Hematocrit 31.6 % (37.5-50.1); Mean Corpuscular HGB Conc 32.6 g/dL (31.6-35.5); Mean Corpuscular Hemoglobin 28.4 pg (28.0-33.3); Mean Corpuscular Volume 87.1 fL (83.0-100.0); Mean Platelet Volume 8.9 fL (9.4-12.4); Platelet Count 431 K/mcL (140-400); Red Blood Count 3.63 M/mcL (4.19-5.50); White Blood Count 15.3 K/mcL (4.3-11.1)
[2020-09-22 07:57] LABS: Hemoglobin 10.3 g/dL (12.9-16.9)
[2020-09-22] MEDS: Insulin LISPRO 300 UNITS/3 ML VIAL SUBQ SCH ×3 (08:06→12:23)
[2020-09-22 08:14] LABS: BUN/Creatinine Ratio 22 (6-26); Blood Urea Nitrogen 22 mg/dL (8-23); Calcium 9.1 mg/dL (8.6-10.3); Carbon Dioxide 23 mEq/L (23-29); Chloride 101 mEq/L (98-107); Glucose 190 mg/dL (70-105); Magnesium 1.5 mg/dL (1.6-2.6); Osmolality,Calculated 282 (280-300); Phosphorous 4.5 mg/dL (2.7-4.5); Potassium 4.7 mEq/L (3.5-5.1); Sodium 132 mEq/L (136-145); eGFR For African Americans > 60 (> 60); eGFR For Non-African Americans > 60 (> 60)
[2020-09-22] MEDS: Magnesium Oxide 400 MG TABLET PO SCH (08:22)
[2020-09-22] MEDS: Nicotine 14 MG PATCH.TD24 TD SCH (08:22)
[2020-09-22] MEDS: Aspirin 81 MG TAB.CHEW PO SCH (08:22)
[2020-09-22] MEDS: Insulin DETEMIR 100 UNIT/ML X5UNITS SUBQ SCH (08:25)
[2020-09-22 16:04] LABS: Adenovirus Not Detected (Not Detect); Bordetella Pertussis Not Detected (Not Detect); Chlamydophila pneumoniae Not Detected (Not Detect); Coronavirus 229E Not Detected (Not Detect); Coronavirus HKU1 Not Detected (Not Detect); Coronavirus NL63 Not Detected (Not Detect); Coronavirus OC43 Not Detected (Not Detect); Human Metapneumovirus Not Detected (Not Detect); Human Rhinovirus/Enterovirus Not Detected (Not Detect); Influenza A Subtype 2009 H1 Not Detected (Not Detect); Influenza B Not Detected (Not Detect); Mycoplasma pneumoniae Not Detected (Not Detect); Parainfluenza Virus 1 Not Detected (Not Detect); Parainfluenza Virus 2 Not Detected (Not Detect); Parainfluenza Virus 3 Not Detected (Not Detect); Parainfluenza Virus 4 Not Detected (Not Detect); Respiratory Syncytial Virus Not Detected (Not Detect); SARS-CoV-2 Not Detected (Not Detect)
[2020-09-22 16:51] VITALS: BP 151/80; PULSE 96; TEMP 98.3; O2SAT 94
== END 2020-09-22 18:13 | DRG 853 ==
LOC: 3NENU → SUATTDRO 23:13
PROVIDERS: ADMIT Internal Medicine; ATTEND Internal Medicine

== ENCOUNTER 2020-10-26 14:46 | Inpatient (IN) ==
[2020-10-26] MEDS ORDERED: Naloxone 0.4 MG/ML INJ IVP PRN (21:56)
[2020-10-26] MEDS: 0.9 % Sodium Chloride 1,000 ML IVC SCH (23:05)
[2020-10-26] MEDS: Acetaminophen 325 MG TABLET PO PRN (23:05)
[2020-10-26] MEDS ORDERED: D5% in Water 1,000 ML IVC PRN (23:34)
[2020-10-26] MEDS ORDERED: Dextrose Gel 15 GM/37.5 ML TUBE PO PRN ×2 (23:34)
[2020-10-26] MEDS ORDERED: *HR* Dextrose 50 % in Water (Vial) 50 ML VIAL IVP PRN (23:34)
[2020-10-26] MEDS: Insulin LISPRO 300 UNITS/3 ML VIAL SUBQ SCH (23:52)
[2020-10-26] MEDS ORDERED: Perflutren Lipid Microsphere 1.3 ML in 0.9 % Sodium Chloride 8.7 ML IVP PRN (23:54)
[2020-10-27] MEDS ORDERED: Vancomycin 1,500 MG/265 ML IV.SOLN IVPB ONE
[2020-10-27 00:09] LABS: Basophils # 0.1 K/mcL (0.0-0.2); Basophils % 0.8 %; Eosinophils # 0.9 K/mcL (0.0-0.6); Eosinophils % 6.5 %; Hematocrit 29.5 % (37.5-50.1); Hemoglobin 9.6 g/dL (12.9-16.9); Immature Granulocytes % 0.6 % (0-4); Lymphocytes # 2.6 K/mcL (0.6-4.6); Mean Corpuscular HGB Conc 32.5 g/dL (31.6-35.5); Mean Corpuscular Hemoglobin 27.9 pg (28.0-33.3); Mean Corpuscular Volume 85.8 fL (83.0-100.0); Mean Platelet Volume 9.6 fL (9.4-12.4); Monocytes # 1.3 K/mcL (0.0-1.3); Monocytes % 9.8 %; Neutrophils # 8.2 K/mcL (1.6-8.9); Platelet Count 373 K/mcL (140-400); Red Blood Count 3.44 M/mcL (4.19-5.50); Red Cell Distribution Width 13.2 % (11.5-14.5); Segmented Neutrophils % 62.3 %; White Blood Count 13.1 K/mcL (4.3-11.1)
[2020-10-27 00:17] LABS: Prothrombin Time 11.5 Seconds (9.4-12.1)
[2020-10-27 00:25] LABS: Bilirubin,Urine Negative (Negative); Blood,Urine Negative (Negative); Clarity,Urine Clear (Clear); Color,Urine Light-Yellow (Yellow); Glucose,Urine (UA) Normal (Normal); Ketones,Urine Negative (Negative); Leukocyte Esterase,Urine Negative (Negative); Nitrite,Urine Negative (Negative); PH,Urine 5.5 pH Units (5.0-8.0); Protein,Urine Trace mg/dL (Neg-Trace); Specific Gravity,Urine 1.023 (1.010-1.025); Urobilinogen,Urine Normal (Normal)
[2020-10-27 00:50] LABS: Alanine Aminotransferase 15 Units/L (7-52); Albumin 3.5 g/dL (3.5-5.7); Albumin/Globulin Ratio 1.2 (1.1-2.2); Aspartate Amino Transferase 16 Units/L (13-39); BUN/Creatinine Ratio 27 (6-26); Bilirubin,Total 0.3 mg/dL (0.3-1.0); Blood Urea Nitrogen 34 mg/dL (8-23); C-Reactive Protein 12 mg/L (Less than 10); Calcium 8.8 mg/dL (8.6-10.3); Carbon Dioxide 17 mEq/L (23-29); Chloride 108 mEq/L (98-107); Glucose 148 mg/dL (70-105); Magnesium 1.5 mg/dL (1.6-2.6); Osmolality,Calculated 292 (280-300); Potassium 4.3 mEq/L (3.5-5.1); Sodium 136 mEq/L (136-145); Total Protein 6.5 g/dL (6.4-8.9); Troponin I < 0.03 ng/mL (< 0.04); eGFR For African Americans > 60 (> 60); eGFR For Non-African Americans 57 (> 60)
[2020-10-27 03:20] LABS: Alkaline Phosphatase 83 Units/L (34-104)
[2020-10-27 03:46] LABS: BUN/Creatinine Ratio 26 (6-26); Blood Urea Nitrogen 32 mg/dL (8-23); Calcium 8.7 mg/dL (8.6-10.3); Carbon Dioxide 20 mEq/L (23-29); Chloride 106 mEq/L (98-107); Glucose 229 mg/dL (70-105); Osmolality,Calculated 294 (280-300); Potassium 4.4 mEq/L (3.5-5.1); Sodium 135 mEq/L (136-145); eGFR For African Americans > 60 (> 60); eGFR For Non-African Americans > 60 (> 60)
[2020-10-27 04:20] LABS: Estimated Average Glucose 197 mg/dl; Hemoglobin A1C 8.5 %
[2020-10-27] MEDS: Insulin LISPRO 300 UNITS/3 ML VIAL SUBQ SCH ×3 (08:34→17:00)
[2020-10-27] MEDS: 0.9 % Sodium Chloride 1,000 ML IVC SCH (08:34)
[2020-10-27] MEDS: Acetaminophen 325 MG TABLET PO PRN ×2 (08:37→20:50)
[2020-10-27 10:34] LABS: Basophils # 0.1 K/mcL (0.0-0.2); Basophils % 0.6 %; Eosinophils # 0.8 K/mcL (0.0-0.6); Eosinophils % 5.7 %; Hematocrit 29.3 % (37.5-50.1); Hemoglobin 9.5 g/dL (12.9-16.9); Immature Granulocytes % 0.4 % (0-4); Lymphocytes # 2.6 K/mcL (0.6-4.6); Lymphocytes % 18.7 %; Mean Corpuscular HGB Conc 32.4 g/dL (31.6-35.5); Mean Corpuscular Hemoglobin 28.3 pg (28.0-33.3); Mean Corpuscular Volume 87.2 fL (83.0-100.0); Monocytes # 1.1 K/mcL (0.0-1.3); Monocytes % 7.5 %; Neutrophils # 9.5 K/mcL (1.6-8.9); Platelet Count 321 K/mcL (140-400); Red Blood Count 3.36 M/mcL (4.19-5.50); Red Cell Distribution Width 13.2 % (11.5-14.5); Segmented Neutrophils % 67.1 %; White Blood Count 14.1 K/mcL (4.3-11.1)
[2020-10-27] MEDS: Nicotine 21 MG PATCH.TD24 TD SCH (12:57)
[2020-10-27] MEDS: Ondansetron 4 MG/2 ML VIAL IVP PRN (12:58)
[2020-10-27] MEDS: *HR* OxyCODONE/APAP 5/325 TABLET PO PRN (17:00)
[2020-10-28] MEDS: *HR* OxyCODONE/APAP 5/325 TABLET PO PRN ×3 (00:17→21:44)
[2020-10-28 05:05] LABS: Basophils # 0.1 K/mcL (0.0-0.2); Basophils % 0.8 %; Eosinophils # 0.8 K/mcL (0.0-0.6); Eosinophils % 7.1 %; Hematocrit 26.9 % (37.5-50.1); Hemoglobin 8.6 g/dL (12.9-16.9); Immature Granulocytes % 0.4 % (0-4); Lymphocytes # 1.9 K/mcL (0.6-4.6); Lymphocytes % 17.9 %; Mean Corpuscular Hemoglobin 27.3 pg (28.0-33.3); Mean Corpuscular Volume 85.4 fL (83.0-100.0); Mean Platelet Volume 9.7 fL (9.4-12.4); Monocytes # 1.1 K/mcL (0.0-1.3); Neutrophils # 6.8 K/mcL (1.6-8.9); Platelet Count 324 K/mcL (140-400); Red Blood Count 3.15 M/mcL (4.19-5.50); Red Cell Distribution Width 13.1 % (11.5-14.5); Segmented Neutrophils % 63.8 %; White Blood Count 10.7 K/mcL (4.3-11.1)
[2020-10-28 05:19] LABS: BUN/Creatinine Ratio 20 (6-26); Blood Urea Nitrogen 21 mg/dL (8-23); Carbon Dioxide 21 mEq/L (23-29); Chloride 108 mEq/L (98-107); Potassium 4.3 mEq/L (3.5-5.1); Sodium 134 mEq/L (136-145); eGFR For African Americans > 60 (> 60)
[2020-10-28 05:20] LABS: Alanine Aminotransferase 14 Units/L (7-52); Albumin 3.1 g/dL (3.5-5.7); Albumin/Globulin Ratio 1.1 (1.1-2.2); Alkaline Phosphatase 81 Units/L (34-104); Aspartate Amino Transferase 14 Units/L (13-39); Bilirubin,Total 0.2 mg/dL (0.3-1.0); Calcium 8.3 mg/dL (8.6-10.3); Globulin 2.7 g/dL (2.4-3.5); Glucose 207 mg/dL (70-105); Osmolality,Calculated 287 (280-300); Total Protein 5.8 g/dL (6.4-8.9); eGFR For Non-African Americans > 60 (> 60)
[2020-10-28] MEDS: Insulin LISPRO 300 UNITS/3 ML VIAL SUBQ SCH ×4 (07:45→21:42)
[2020-10-28] MEDS: Nicotine 21 MG PATCH.TD24 TD SCH (07:46)
[2020-10-28] MEDS: Aspirin Enteric Coated 81 MG Tablet PO SCH (10:02)
[2020-10-28] MEDS: Topiramate 25 MG TABLET PO SCH (21:43)
[2020-10-29 06:15] LABS: Hematocrit 27.9 % (37.5-50.1); Hemoglobin 9.2 g/dL (12.9-16.9)
[2020-10-29 06:36] LABS: % Iron Saturation 14 % (20-55); BUN/Creatinine Ratio 24 (6-26); Blood Urea Nitrogen 28 mg/dL (8-23); Carbon Dioxide 20 mEq/L (23-29); Chloride 108 mEq/L (98-107); Glucose 163 mg/dL (70-105); Iron 35 mcg/dL (65-175); Magnesium 1.4 mg/dL (1.6-2.6); Osmolality,Calculated 289 (280-300); Phosphorous 3.9 mg/dL (2.7-4.5); Potassium 4.6 mEq/L (3.5-5.1); Sodium 135 mEq/L (136-145); Transferrin 182 mg/dL (203-362); eGFR For African Americans > 60 (> 60); eGFR For Non-African Americans > 60 (> 60)
[2020-10-29 06:54] LABS: Ferritin 309 ng/mL (20-250)
[2020-10-29 06:59] LABS: Folate 8.1 ng/mL (3.0-16.0)
[2020-10-29] MEDS: Nicotine 21 MG PATCH.TD24 TD SCH (07:30)
[2020-10-29] MEDS: Aspirin Enteric Coated 81 MG Tablet PO SCH (07:31)
[2020-10-29] MEDS: Acetaminophen 325 MG TABLET PO PRN ×2 (07:40→14:10)
[2020-10-29] MEDS: Insulin LISPRO 300 UNITS/3 ML VIAL SUBQ SCH ×4 (08:58→19:59)
[2020-10-29 10:19] LABS: Calcium 8.5 mg/dL (8.6-10.3)
[2020-10-29] MEDS: cephALEXin 500 MG CAPSULE PO SCH ×2 (14:11→20:01)
[2020-10-29] MEDS: *HR* OxyCODONE/APAP 5/325 TABLET PO PRN (16:39)
[2020-10-29] MEDS: Doxycycline 100 MG CAPSULE PO SCH (20:02)
[2020-10-29] MEDS: Topiramate 25 MG TABLET PO SCH (20:02)
[2020-10-30 01:57] LABS: BUN/Creatinine Ratio 25 (6-26); Blood Urea Nitrogen 28 mg/dL (8-23); Calcium 8.7 mg/dL (8.6-10.3); Carbon Dioxide 19 mEq/L (23-29); Chloride 104 mEq/L (98-107); Glucose 187 mg/dL (70-105); Magnesium 1.5 mg/dL (1.6-2.6); Osmolality,Calculated 286 (280-300); Phosphorous 4.1 mg/dL (2.7-4.5); Potassium 4.1 mEq/L (3.5-5.1); Sodium 133 mEq/L (136-145); eGFR For African Americans > 60 (> 60); eGFR For Non-African Americans > 60 (> 60)
[2020-10-30] MEDS: Acetaminophen 325 MG TABLET PO PRN ×2 (08:12→20:05)
[2020-10-30] MEDS: Insulin LISPRO 300 UNITS/3 ML VIAL SUBQ SCH ×4 (09:07→20:11)
[2020-10-30] MEDS ORDERED: 0.9 % Sodium Chloride 500 ML IVC ONE (09:13)
[2020-10-30] MEDS: Aspirin Enteric Coated 81 MG Tablet PO SCH (09:23)
[2020-10-30] MEDS: Nicotine 21 MG PATCH.TD24 TD SCH (09:23)
[2020-10-30] MEDS: Doxycycline 100 MG CAPSULE PO SCH ×2 (09:23→20:05)
[2020-10-30] MEDS: cephALEXin 500 MG CAPSULE PO SCH ×3 (09:23→20:06)
[2020-10-30 09:39] LABS: Basophils # 0.1 K/mcL (0.0-0.2); Basophils % 0.3 %; Eosinophils # 0.1 K/mcL (0.0-0.6); Eosinophils % 0.4 %; Hematocrit 27.8 % (37.5-50.1); Hemoglobin 9.3 g/dL (12.9-16.9); Immature Granulocytes % 0.4 % (0-4); Lymphocytes # 0.8 K/mcL (0.6-4.6); Lymphocytes % 4.5 %; Mean Corpuscular HGB Conc 33.5 g/dL (31.6-35.5); Mean Corpuscular Hemoglobin 28.4 pg (28.0-33.3); Mean Platelet Volume 9.4 fL (9.4-12.4); Monocytes # 1.4 K/mcL (0.0-1.3); Monocytes % 8.3 %; Neutrophils # 14.6 K/mcL (1.6-8.9); Platelet Count 306 K/mcL (140-400); Red Blood Count 3.27 M/mcL (4.19-5.50); Red Cell Distribution Width 13.4 % (11.5-14.5); Segmented Neutrophils % 86.1 %
[2020-10-30 09:40] LABS: White Blood Count 16.9 K/mcL (4.3-11.1)
[2020-10-30] MEDS ORDERED: Piperacillin/Tazobactam 3.375 GM in 0.9 % Sodium Chloride Mini Bag 100 ML IVPB ONE (10:31)
[2020-10-30] MEDS ORDERED: 0.9 % Sodium Chloride 1,000 ML IVC SCH (12:00)
[2020-10-30] MEDS ORDERED: Vancomycin 1,250 MG/262.5 ML IV.SOLN IVPB ONE (12:00)
[2020-10-30 13:52] LABS: Adenovirus F 40/41 PCR Not detected (Not detect); Astrovirus PCR Not detected (Not detect); Campylobacter by PCR Not detected (Not detect); Cryptosporidium by PCR Not detected (Not detect); Cyclospora cayetanensis PCR Not detected (Not detect); E. coli O157 by PCR Not detected (Not detect); Entamoeba histolytica PCR Not detected (Not detect); Enteroaggregative E.coli(EAEC) Not detected (Not detect); Enteropathogenic E.coli(EPEC) Not detected (Not detect); Enterotoxigenic E.coli (ETEC) Not detected (Not detect); Giardia lamblia PCR Not detected (Not detect); Norovirus GI/GII PCR Not detected (Not detect); Plesiomonas shigelloides PCR Not detected (Not detect); Rotavirus A PCR Not detected (Not detect); Salmonella PCR Not detected (Not detect); Sapovirus PCR Not detected (Not detect); Shig/EnteroinvasiveE coli EIEC Not detected (Not detect); Shigalike tox-prod E coli STEC Not detected (Not detect); Vibrio PCR Not detected (Not detect); Vibrio cholerae PCR Not detected (Not detect); Yersinia enterocolitica PCR Not detected (Not detect)
[2020-10-30 13:58] LABS: C.difficile Toxin A/B Gene PCR DETECTED (Not detect)
[2020-10-30] MEDS: Ondansetron 4 MG/2 ML VIAL IVP PRN (16:13)
[2020-10-30] MEDS: Vancomycin Oral Soln 125 MG/2.5 ML UDC PO SCH ×3 (16:13→21:18)
[2020-10-30] MEDS: Topiramate 25 MG TABLET PO SCH (20:06)
[2020-10-31 01:51] LABS: Hematocrit 27.6 % (37.5-50.1); Mean Corpuscular HGB Conc 32.6 g/dL (31.6-35.5); Mean Corpuscular Hemoglobin 27.8 pg (28.0-33.3); Mean Corpuscular Volume 85.2 fL (83.0-100.0); Mean Platelet Volume 9.9 fL (9.4-12.4); Platelet Count 265 K/mcL (140-400); Red Blood Count 3.24 M/mcL (4.19-5.50); Red Cell Distribution Width 13.6 % (11.5-14.5)
[2020-10-31 02:12] LABS: Alanine Aminotransferase 14 Units/L (7-52); Albumin/Globulin Ratio 1.1 (1.1-2.2); Alkaline Phosphatase 72 Units/L (34-104); Aspartate Amino Transferase 13 Units/L (13-39); BUN/Creatinine Ratio 26 (6-26); Bilirubin,Total 0.4 mg/dL (0.3-1.0); Blood Urea Nitrogen 32 mg/dL (8-23); Calcium 8.3 mg/dL (8.6-10.3); Carbon Dioxide 16 mEq/L (23-29); Chloride 106 mEq/L (98-107); Globulin 2.8 g/dL (2.4-3.5); Glucose 206 mg/dL (70-105); Osmolality,Calculated 281 (280-300); Phosphorous 3.8 mg/dL (2.7-4.5); Sodium 129 mEq/L (136-145); Total Protein 5.8 g/dL (6.4-8.9); eGFR For African Americans > 60 (> 60); eGFR For Non-African Americans 60 (> 60)
[2020-10-31 02:37] LABS: Eosinophils # 0.7 K/mcL (0.0-0.6); Lymphocytes # 0.7 K/mcL (0.6-4.6); Monocytes # 0.7 K/mcL (0.0-1.3); Neutrophils # 9.8 K/mcL (1.6-8.9); Platelet Estimate Normal (Normal); Toxic Granulation Present (Not Present)
[2020-10-31] MEDS: Ondansetron 4 MG/2 ML VIAL IVP PRN (03:04)
[2020-10-31 03:09] VITALS: TEMP 97.7
[2020-10-31] MEDS: Nicotine 21 MG PATCH.TD24 TD SCH (07:47)
[2020-10-31] MEDS: Insulin LISPRO 300 UNITS/3 ML VIAL SUBQ SCH ×2 (07:48→11:07)
[2020-10-31] MEDS: cephALEXin 500 MG CAPSULE PO SCH (07:48)
[2020-10-31] MEDS: Aspirin Enteric Coated 81 MG Tablet PO SCH (07:48)
[2020-10-31] MEDS: Doxycycline 100 MG CAPSULE PO SCH (07:48)
[2020-10-31] MEDS: Vancomycin Oral Soln 125 MG/2.5 ML UDC PO SCH (07:51)
[2020-10-31] MEDS ORDERED: 0.9 % Sodium Chloride 1,000 ML IVC SCH (09:15)
[2020-10-31 10:24] LABS: Adenovirus Not Detected (Not Detect); Bordetella Pertussis Not Detected (Not Detect); Chlamydophila pneumoniae Not Detected (Not Detect); Coronavirus 229E Not Detected (Not Detect); Coronavirus HKU1 Not Detected (Not Detect); Coronavirus NL63 Not Detected (Not Detect); Coronavirus OC43 Not Detected (Not Detect); Human Metapneumovirus Not Detected (Not Detect); Human Rhinovirus/Enterovirus Not Detected (Not Detect); Influenza A Subtype 2009 H1 Not Detected (Not Detect); Influenza B Not Detected (Not Detect); Mycoplasma pneumoniae Not Detected (Not Detect); Parainfluenza Virus 1 Not Detected (Not Detect); Parainfluenza Virus 2 Not Detected (Not Detect); Parainfluenza Virus 3 Not Detected (Not Detect); Parainfluenza Virus 4 Not Detected (Not Detect); Respiratory Syncytial Virus Not Detected (Not Detect); SARS-CoV-2 Not Detected (Not Detect)
[2020-10-31] MEDS: Acetaminophen 325 MG TABLET PO PRN (12:05)
[2020-10-31 16:23] VITALS: BP 108/73; PULSE 98; O2SAT 96
== END 2020-10-31 18:35 | DRG 564 ==
LOC: 3BNU → SUATTDRO 22:10
PROVIDERS: ADMIT Internal Medicine; ATTEND Internal Medicine

== ENCOUNTER 2020-12-31 17:11 | Inpatient (IN) ==
[2021-01-01] MEDS ORDERED: Naloxone 0.4 MG/ML INJ IVP PRN (05:24)
[2021-01-01] MEDS ORDERED: Ondansetron 4 MG/2 ML VIAL IVP PRN (05:24)
[2021-01-01] MEDS ORDERED: *HR* Dextrose 50 % in Water (Syg) 50 ML SYRINGE IVP PRN (05:29)
[2021-01-01] MEDS ORDERED: D5% in Water 1,000 ML IVC PRN (05:29)
[2021-01-01] MEDS ORDERED: Dextrose Gel 15 GM/37.5 ML TUBE PO PRN ×2 (05:29)
[2021-01-01] MEDS ORDERED: Ipratropium/Albuterol Neb 3 ML IH PRN (05:45)
[2021-01-01] MEDS ORDERED: Vancomycin 0 MG in 0.9 % Sodium Chloride 250 ML IVPB SCH (06:00)
[2021-01-01 06:14] LABS: Basophils # 0.1 K/mcL (0.0-0.2); Basophils % 0.7 %; Eosinophils # 0.5 K/mcL (0.0-0.6); Eosinophils % 4.4 %; Hematocrit 29.5 % (37.5-50.1); Hemoglobin 9.4 g/dL (12.9-16.9); Immature Granulocytes % 0.7 % (0-4); Lymphocytes # 1.8 K/mcL (0.6-4.6); Lymphocytes % 15.3 %; Mean Corpuscular HGB Conc 31.9 g/dL (31.6-35.5); Mean Corpuscular Hemoglobin 27.9 pg (28.0-33.3); Mean Corpuscular Volume 87.5 fL (83.0-100.0); Mean Platelet Volume 8.8 fL (9.4-12.4); Monocytes # 0.9 K/mcL (0.0-1.3); Monocytes % 7.8 %; Neutrophils # 8.3 K/mcL (1.6-8.9); Platelet Count 384 K/mcL (140-400); Red Blood Count 3.37 M/mcL (4.19-5.50); Red Cell Distribution Width 13.8 % (11.5-14.5); Segmented Neutrophils % 71.1 %; White Blood Count 11.7 K/mcL (4.3-11.1)
[2021-01-01 06:24] LABS: INR 1.1; Prothrombin Time 11.7 Seconds (9.4-12.1)
[2021-01-01 06:33] LABS: Alanine Aminotransferase 12 Units/L (7-52); Albumin 3.5 g/dL (3.5-5.7); Albumin/Globulin Ratio 1.3 (1.1-2.2); Alkaline Phosphatase 68 Units/L (34-104); Aspartate Amino Transferase 9 Units/L (13-39); BUN/Creatinine Ratio 22 (6-26); Bilirubin,Total 0.2 mg/dL (0.3-1.0); Blood Urea Nitrogen 28 mg/dL (8-23); Calcium 9.1 mg/dL (8.6-10.3); Carbon Dioxide 20 mEq/L (23-29); Chloride 106 mEq/L (98-107); Globulin 2.8 g/dL (2.4-3.5); Glucose 275 mg/dL (70-105); Magnesium 1.5 mg/dL (1.6-2.6); Osmolality,Calculated 293 (280-300); Potassium 4.8 mEq/L (3.5-5.1); Sodium 134 mEq/L (136-145); Total Protein 6.3 g/dL (6.4-8.9); eGFR For African Americans > 60 (> 60); eGFR For Non-African Americans 57 (> 60)
[2021-01-01] MEDS: 0.9 % Sodium Chloride 1,000 ML IVC SCH ×2 (06:57→18:11)
[2021-01-01] MEDS: Cefepime HCl 2,000 MG in 0.9 % Sodium Chloride Mini Bag 100 ML IVPB SCH ×2 (06:57→18:08)
[2021-01-01 08:36] LABS: C-Reactive Protein 30 mg/L (Less than 10)
[2021-01-01] MEDS: Nicotine 14 MG PATCH.TD24 TD SCH (09:16)
[2021-01-01] MEDS: *HR* HYDROmorphone (PF) 1 MG/ML SYRINGE IVP PRN ×2 (09:24→18:12)
[2021-01-01] MEDS: Insulin LISPRO 300 UNITS/3 ML VIAL SUBQ SCH ×3 (09:27→18:11)
[2021-01-01 15:43] LABS: Bilirubin,Urine Negative (Negative); Blood,Urine Negative (Negative); Clarity,Urine Clear (Clear); Color,Urine Light-Yellow (Yellow); Glucose,Urine (UA) 100 mg/dL (Normal); Hyaline Casts,Urine Few per lpf (None Seen); Ketones,Urine Negative (Negative); Leukocyte Esterase,Urine Negative (Negative); Mucus,Urine Few per lpf (None-Few); Nitrite,Urine Negative (Negative); PH,Urine 5.5 pH Units (5.0-8.0); Protein,Urine Trace mg/dL (Neg-Trace); RBC,Urine 0-3 per hpf (0-3); Specific Gravity,Urine > 1.030 (1.010-1.025); Squamous Epithelial Cell,Urine Few per hpf (None-Few); Urobilinogen,Urine Normal (Normal); WBC,Urine 0-3 per hpf (0-3)
[2021-01-02] MEDS: *HR* HYDROmorphone (PF) 1 MG/ML SYRINGE IVP PRN ×4 (01:14→23:34)
[2021-01-02 02:16] LABS: Basophils # 0.1 K/mcL (0.0-0.2); Basophils % 0.7 %; Eosinophils # 0.6 K/mcL (0.0-0.6); Eosinophils % 5.3 %; Hematocrit 25.8 % (37.5-50.1); Hemoglobin 8.5 g/dL (12.9-16.9); Immature Granulocytes % 0.5 % (0-4); Lymphocytes # 1.7 K/mcL (0.6-4.6); Mean Corpuscular HGB Conc 32.9 g/dL (31.6-35.5); Mean Corpuscular Hemoglobin 28.7 pg (28.0-33.3); Mean Corpuscular Volume 87.2 fL (83.0-100.0); Mean Platelet Volume 8.6 fL (9.4-12.4); Monocytes # 1.1 K/mcL (0.0-1.3); Monocytes % 8.9 %; Neutrophils # 8.4 K/mcL (1.6-8.9); Platelet Count 337 K/mcL (140-400); Red Blood Count 2.96 M/mcL (4.19-5.50); Red Cell Distribution Width 13.8 % (11.5-14.5); Segmented Neutrophils % 70.6 %
[2021-01-02 02:33] LABS: BUN/Creatinine Ratio 20 (6-26); Blood Urea Nitrogen 21 mg/dL (8-23); Calcium 8.5 mg/dL (8.6-10.3); Carbon Dioxide 23 mEq/L (23-29); Chloride 108 mEq/L (98-107); Glucose 243 mg/dL (70-105); Osmolality,Calculated 289 (280-300); Potassium 4.3 mEq/L (3.5-5.1); Sodium 134 mEq/L (136-145); eGFR For African Americans > 60 (> 60); eGFR For Non-African Americans > 60 (> 60)
[2021-01-02] MEDS: Cefepime HCl 2,000 MG in 0.9 % Sodium Chloride Mini Bag 100 ML IVPB SCH (04:58)
[2021-01-02] MEDS: Nicotine 14 MG PATCH.TD24 TD SCH (08:15)
[2021-01-02] MEDS: Insulin LISPRO 300 UNITS/3 ML VIAL SUBQ SCH ×2 (08:15→18:03)
[2021-01-02] MEDS ORDERED: Iron Sucrose Complex 200 MG in 0.9 % Sodium Chloride 100 ML IVPB ONE (09:29)
[2021-01-02 09:47] LABS: Magnesium 1.3 mg/dL (1.6-2.6)
[2021-01-02] MEDS ORDERED: Insulin LISPRO 300 UNITS/3 ML VIAL SUBQ SCH (12:00)
[2021-01-02] MEDS ORDERED: Vancomycin 1,000 MG VIAL ONE (14:39)
[2021-01-02] MEDS ORDERED: Ondansetron 4 MG/2 ML VIAL ONE (14:50)
[2021-01-02] MEDS ORDERED: Lidocaine -MPF 2% 5 ML VIAL ONE (14:50)
[2021-01-02] MEDS ORDERED: *HR* Midazolam HCl 2 MG/2 ML VIAL ONE (14:50)
[2021-01-02] MEDS ORDERED: *HR* Propofol 200 MG/20 ML VIAL IVP ONE ×2 (14:50→15:35)
[2021-01-02] MEDS ORDERED: *HR* Succinylcholine 200 MG/10 ML VIAL IVP ONE (14:50)
[2021-01-02] MEDS ORDERED: *HR* FentaNYL (PF) 100 MCG/2 ML VIAL ONE (14:50)
[2021-01-02] MEDS ORDERED: *HR* Rocuronium Bromide 50 MG/5 ML VIAL ONE (14:50)
[2021-01-02] MEDS ORDERED: *HR* OxyCODONE Immed Rel 5 MG TABLET PO PRN (15:10)
[2021-01-02] MEDS ORDERED: *HR* HYDROmorphone PF 0.5 MG/0.5 ML SYRINGE IVP PRN (15:10)
[2021-01-02] MEDS ORDERED: Albuterol 2.5 MG/3 ML NEBULIZER IH PRN (15:10)
[2021-01-02] MEDS ORDERED: Ondansetron 4 MG/2 ML VIAL IVP PRN ×2 (15:10→16:54)
[2021-01-02] MEDS ORDERED: *HR* HYDROMORPHONE 2 MG/ML VIAL ONE (15:28)
[2021-01-02] MEDS ORDERED: Ringers Solution, Lactated 1,000 ML ONE (16:05)
[2021-01-02] MEDS ORDERED: Dextrose Gel 15 GM/37.5 ML TUBE PO PRN ×2 (16:54)
[2021-01-02] MEDS ORDERED: Naloxone 0.4 MG/ML INJ IVP PRN (16:54)
[2021-01-02] MEDS ORDERED: Ipratropium/Albuterol Neb 3 ML IH PRN (16:54)
[2021-01-02] MEDS ORDERED: D5% in Water 1,000 ML IVC PRN (16:54)
[2021-01-02] MEDS ORDERED: *HR* Dextrose 50 % in Water (Syg) 50 ML SYRINGE IVP PRN (16:54)
[2021-01-02] MEDS ORDERED: Cefepime HCl 2,000 MG in 0.9 % Sodium Chloride Mini Bag 100 ML IVPB SCH (18:00)
[2021-01-02] MEDS: Cefepime HCl 2,000 MG in Water for inj. (sterile) 20 ML IVP SCH (18:04)
[2021-01-03] MEDS: Insulin LISPRO 300 UNITS/3 ML VIAL SUBQ SCH ×5 (01:16→20:33)
[2021-01-03 05:10] LABS: Basophils # 0.1 K/mcL (0.0-0.2); Basophils % 0.3 %; Eosinophils % 0.2 %; Hematocrit 26.3 % (37.5-50.1); Immature Granulocytes % 0.8 % (0-4); Lymphocytes # 1.5 K/mcL (0.6-4.6); Lymphocytes % 8.2 %; Mean Corpuscular HGB Conc 34.2 g/dL (31.6-35.5); Mean Corpuscular Volume 84.8 fL (83.0-100.0); Mean Platelet Volume 8.8 fL (9.4-12.4); Monocytes % 6.3 %; Neutrophils # 15.3 K/mcL (1.6-8.9); Platelet Count 367 K/mcL (140-400); Red Cell Distribution Width 13.2 % (11.5-14.5); Segmented Neutrophils % 84.2 %
[2021-01-03 05:19] LABS: Monocytes # 1.2 K/mcL (0.0-1.3); White Blood Count 18.2 K/mcL (4.3-11.1)
[2021-01-03] MEDS: Cefepime HCl 2,000 MG in Water for inj. (sterile) 20 ML IVP SCH ×2 (05:22→17:23)
[2021-01-03 05:25] LABS: Alanine Aminotransferase 10 Units/L (7-52); Albumin 3.3 g/dL (3.5-5.7); Albumin/Globulin Ratio 1.2 (1.1-2.2); Alkaline Phosphatase 65 Units/L (34-104); Aspartate Amino Transferase 11 Units/L (13-39); BUN/Creatinine Ratio 20 (6-26); Bilirubin,Total 0.2 mg/dL (0.3-1.0); Blood Urea Nitrogen 19 mg/dL (8-23); Calcium 8.7 mg/dL (8.6-10.3); Carbon Dioxide 21 mEq/L (23-29); Chloride 102 mEq/L (98-107); Globulin 2.7 g/dL (2.4-3.5); Glucose 224 mg/dL (70-105); Osmolality,Calculated 281 (280-300); Potassium 4.6 mEq/L (3.5-5.1); Sodium 131 mEq/L (136-145); eGFR For African Americans > 60 (> 60); eGFR For Non-African Americans > 60 (> 60)
[2021-01-03] MEDS: *HR* HYDROmorphone (PF) 1 MG/ML SYRINGE IVP PRN (05:29)
[2021-01-03] MEDS: Nicotine 14 MG PATCH.TD24 TD SCH (08:47)
[2021-01-03] MEDS ORDERED: Ketorolac 30 MG/ML VIAL IVP ONE (08:55)
[2021-01-03] MEDS ORDERED: 0.9 % Sodium Chloride 1,000 ML IVC SCH (12:00)
[2021-01-03] MEDS: *HR* OxyCODONE/APAP 7.5/325 TABLET PO PRN (17:30)
[2021-01-03] MEDS ORDERED: Ondansetron 4 MG/2 ML VIAL IVP ONE (20:57)
[2021-01-04 06:23] LABS: Basophils # 0.1 K/mcL (0.0-0.2); Basophils % 0.7 %; Eosinophils # 0.6 K/mcL (0.0-0.6); Eosinophils % 4.8 %; Hematocrit 26.1 % (37.5-50.1); Hemoglobin 8.4 g/dL (12.9-16.9); Lymphocytes # 2.4 K/mcL (0.6-4.6); Lymphocytes % 19.2 %; Mean Corpuscular HGB Conc 32.2 g/dL (31.6-35.5); Mean Platelet Volume 8.6 fL (9.4-12.4); Monocytes % 7.9 %; Neutrophils # 8.4 K/mcL (1.6-8.9); Platelet Count 353 K/mcL (140-400); Red Cell Distribution Width 13.6 % (11.5-14.5); Segmented Neutrophils % 66.4 %; White Blood Count 12.6 K/mcL (4.3-11.1)
[2021-01-04 06:44] LABS: Alanine Aminotransferase 11 Units/L (7-52); Albumin 3.2 g/dL (3.5-5.7); Albumin/Globulin Ratio 1.2 (1.1-2.2); Alkaline Phosphatase 58 Units/L (34-104); Aspartate Amino Transferase 11 Units/L (13-39); BUN/Creatinine Ratio 17 (6-26); Bilirubin,Total 0.2 mg/dL (0.3-1.0); Blood Urea Nitrogen 18 mg/dL (8-23); Calcium 8.2 mg/dL (8.6-10.3); Carbon Dioxide 22 mEq/L (23-29); Chloride 105 mEq/L (98-107); Globulin 2.6 g/dL (2.4-3.5); Glucose 198 mg/dL (70-105); Osmolality,Calculated 285 (280-300); Potassium 4.2 mEq/L (3.5-5.1); Sodium 134 mEq/L (136-145); Total Protein 5.8 g/dL (6.4-8.9); eGFR For African Americans > 60 (> 60); eGFR For Non-African Americans > 60 (> 60)
[2021-01-04] MEDS: *HR* OxyCODONE/APAP 7.5/325 TABLET PO PRN (08:59)
[2021-01-04] MEDS: Cefepime HCl 2,000 MG in Water for inj. (sterile) 20 ML IVP SCH ×2 (09:00→17:31)
[2021-01-04] MEDS: Nicotine 14 MG PATCH.TD24 TD SCH (09:00)
[2021-01-04] MEDS: Insulin LISPRO 300 UNITS/3 ML VIAL SUBQ SCH ×4 (09:01→20:18)
[2021-01-04] MEDS ORDERED: *HR* HYDROmorphone (PF) 1 MG/ML SYRINGE IVP ONE (10:30)
[2021-01-04] MEDS: Ketorolac 15 MG/ML VIAL IVP SCH ×2 (12:41→17:31)
[2021-01-05] MEDS: Ketorolac 15 MG/ML VIAL IVP SCH ×5 (00:25→23:48)
[2021-01-05] MEDS: Cefepime HCl 2,000 MG in Water for inj. (sterile) 20 ML IVP SCH ×2 (05:19→17:31)
[2021-01-05 05:31] LABS: Basophils # 0.1 K/mcL (0.0-0.2); Basophils % 0.4 %; Eosinophils # 0.6 K/mcL (0.0-0.6); Eosinophils % 4.4 %; Hematocrit 24.4 % (37.5-50.1); Hemoglobin 8.2 g/dL (12.9-16.9); Immature Granulocytes % 0.8 % (0-4); Lymphocytes # 2.2 K/mcL (0.6-4.6); Lymphocytes % 15.7 %; Mean Corpuscular HGB Conc 33.6 g/dL (31.6-35.5); Mean Corpuscular Volume 86.2 fL (83.0-100.0); Mean Platelet Volume 8.9 fL (9.4-12.4); Monocytes % 7.2 %; Neutrophils # 9.8 K/mcL (1.6-8.9); Platelet Count 360 K/mcL (140-400); Red Blood Count 2.83 M/mcL (4.19-5.50); Red Cell Distribution Width 13.4 % (11.5-14.5); Segmented Neutrophils % 71.5 %; White Blood Count 13.7 K/mcL (4.3-11.1)
[2021-01-05 05:52] LABS: Alanine Aminotransferase 12 Units/L (7-52); Albumin 3.1 g/dL (3.5-5.7); Albumin/Globulin Ratio 1.1 (1.1-2.2); Alkaline Phosphatase 62 Units/L (34-104); Aspartate Amino Transferase 10 Units/L (13-39); BUN/Creatinine Ratio 24 (6-26); Bilirubin,Total 0.2 mg/dL (0.3-1.0); Blood Urea Nitrogen 28 mg/dL (8-23); Calcium 8.4 mg/dL (8.6-10.3); Carbon Dioxide 23 mEq/L (23-29); Chloride 103 mEq/L (98-107); Globulin 2.8 g/dL (2.4-3.5); Glucose 211 mg/dL (70-105); Osmolality,Calculated 286 (280-300); Potassium 4.4 mEq/L (3.5-5.1); Sodium 132 mEq/L (136-145); Total Protein 5.9 g/dL (6.4-8.9); eGFR For African Americans > 60 (> 60); eGFR For Non-African Americans > 60 (> 60)
[2021-01-05] MEDS: Insulin LISPRO 300 UNITS/3 ML VIAL SUBQ SCH ×4 (08:07→21:02)
[2021-01-05] MEDS: Nicotine 14 MG PATCH.TD24 TD SCH (08:13)
[2021-01-05 09:14] LABS: Magnesium 1.6 mg/dL (1.6-2.6)
[2021-01-05] MEDS: *HR* OxyCODONE/APAP 7.5/325 TABLET PO PRN (20:56)
[2021-01-06] MEDS: Cefepime HCl 2,000 MG in Water for inj. (sterile) 20 ML IVP SCH (05:59)
[2021-01-06] MEDS: Ketorolac 15 MG/ML VIAL IVP SCH (06:00)
[2021-01-06] MEDS ORDERED: Vancomycin 1,250 MG/262.5 ML IV.SOLN IVPB SCH (06:00)
[2021-01-06 07:27] VITALS: BP 137/78; PULSE 101; TEMP 98.2; O2SAT 98
[2021-01-06] MEDS: Insulin LISPRO 300 UNITS/3 ML VIAL SUBQ SCH (08:47)
[2021-01-06] MEDS: Nicotine 14 MG PATCH.TD24 TD SCH (09:02)
[2021-01-06 09:18] LABS: Influenza A PCR Negative (Negative); Influenza B PCR Negative (Negative); Resp. Syncytial Virus PCR Negative (Negative)
[2021-01-06 09:21] LABS: SARS-CoV-2 by PCR (In House) Negative (Negative)
== END 2021-01-06 10:43 | disposition other institution (70) | DRG 579 ==
LOC: 3BNU
PROVIDERS: ADMIT Internal Medicine; ATTEND Internal Medicine